=== PATIENT | female | born 1960 | race Caucasian/White ===

== ENCOUNTER 2016-09-10 15:10 | Inpatient (IN) | payer BC ==
[~2016-09-10] VITALS: Ht 165.1 cm; Wt 127.9 kg
[2016-09-17] MEDS ORDERED: ALLO100T PO (09:46)
[2016-09-17] MEDS ORDERED: DICY10CA12 PO (09:46)
[2016-09-17] MEDS ORDERED: OMEP10CA PO (09:46)
[2016-09-17] MEDS ORDERED: METF500T PO (09:46)
[2016-09-17] MEDS ORDERED: MELA5TAB15 PO (09:46)
[2016-09-17] MEDS ORDERED: POTA99TA4 PO (09:47)
[2016-09-17] MEDS ORDERED: CETI10CA3 PO (09:47)
[2016-09-17] MEDS ORDERED: FLUT1SPR5 EACH NARE (09:47)
[2016-09-17] MEDS ORDERED: MAGN250T11 PO (09:47)
[2016-09-17] MEDS ORDERED: NAPR500T PO (10:43)
[2016-09-17] MEDS ORDERED: FLUO10TA PO (10:43)
[2016-09-17] MEDS ORDERED: AMBI5TAB PO (10:43)
[2016-09-28] MEDS ORDERED: CHLORHEXIDINE GLUCONATE 2 % 1 PACK (2 CLOTHS) TOPICAL PRN (05:30)
[2016-09-28] MEDS ORDERED: ceFAZolin 2 GM PREMIX 50 ML IV SCH (05:30)
[2016-09-28] MEDS ORDERED: CHLORHEXIDINE GLUCONATE 4% SOLN 120 ML BTL TOPICAL SCH (05:30)
[2016-09-28] MEDS ORDERED: POVIDONE IODINE 5% (ANTISEPSIS KIT) 4 APPLICATIONS EACH NARE PRN (05:30)
[2016-09-28] MEDS ORDERED: SODIUM CHLORID 0.9% 500 ML IV PRN (05:30)
[2016-09-28] MEDS ORDERED: METOPROLOL TARTRATE 25 MG TAB PO PRN (05:30)
[2016-09-28] MEDS ORDERED: LACTATED RINGER'S 1000 ML IV PRN (05:30)
[2016-09-28] MEDS ORDERED: INSULIN HUMAN REGULAR 1,000 UNITS/10 ML VIAL SQ PRN (05:30)
[2016-09-28] MEDS ORDERED: MELA1TAB18 PO (05:40)
[2016-09-28] MEDS ORDERED: MAGN400T2 PO (05:40)
[2016-09-28] MEDS ORDERED: IBUP200T2 PO (05:42)
[2016-09-28] MEDS ORDERED: OMEP40CA2 PO (05:43)
[2016-09-28 05:44] VITALS: BP 158/97; PULSE 75; RESP 16; TEMP 98.5; O2SAT 98
[2016-09-28] MEDS ORDERED: GENTAMICIN SULFATE 80 MG/2 ML VIAL ONE (06:10)
[2016-09-28] MEDS ORDERED: ACETAMINOPHEN/HYDROcodone 325 MG/7.5 MG TAB PO PRN (07:00)
[2016-09-28] MEDS ORDERED: ONDANSETRON HCL 4 MG/2 ML VIAL IVP PRN (07:00)
[2016-09-28] MEDS ORDERED: MAGNESIUM HYDROXIDE SUSP 30 ML CUP PO PRN (07:00)
[2016-09-28] MEDS ORDERED: SODIUM CHLORIDE 0.9% IV SCH ×2 (07:00→10:00)
[2016-09-28] MEDS ORDERED: MELATONIN 5 MG TAB PO PRN (07:00)
[2016-09-28] MEDS ORDERED: DICYCLOMINE HCL 10 MG CAP PO PRN (07:00)
[2016-09-28] MEDS ORDERED: TRANEXAMIC ACID INJ 0 MG in SODIUM CHLORIDE 0.9% INJ 100 ML IV SCH (07:00)
[2016-09-28] MEDS ORDERED: SODIUM CHLORIDE 0.9% FLUSH 5 ML FLUSH IVF PRN (07:00)
[2016-09-28] MEDS ORDERED: EXPAREL PERI-ARTICULAR INJECTION (TOTAL VOL. 100 ML) P-ARTICULR SCH ×2 (07:00)
[2016-09-28] MEDS ORDERED: TRANEXAMIC ACID IV SCH ×2 (07:00→10:00)
[2016-09-28] MEDS: KETOROLAC TROMETHAMINE 30 MG/ML (IVP) VIAL IVP SCH ×3 (07:00→18:07)
[2016-09-28] MEDS ORDERED: ZOLPIDEM TARTRATE 5 MG TAB PO PRN (07:00)
[2016-09-28] MEDS ORDERED: MORPHINE SULFATE 4 MG/ML INJ IV PUSH PRN (07:00)
[2016-09-28] MEDS ORDERED: BUPIVACAINE LIPOSOME PF 1.3% 20 ML VIAL ONE (07:34)
[2016-09-28] MEDS: FLUoxetine HCL 10 MG CAP PO SCH (09:00)
[2016-09-28] MEDS ORDERED: NON-FORMULARY DRUG (Potassium 1 TAB) PO SCH (09:00)
[2016-09-28] MEDS: PANTOPRAZOLE SOD 40 MG DELAYED RELEASE TAB PO SCH ×2 (09:00→20:32)
[2016-09-28] MEDS: ASPIRIN EC 81 MG TABEC PO SCH ×2 (09:00→20:32)
[2016-09-28] MEDS: MAGNESIUM OXIDE 400 MG TAB PO SCH (09:00)
[2016-09-28] MEDS: CETIRIZINE HCL 10 MG TAB PO SCH (09:00)
[2016-09-28] MEDS: ALLOPURINOL 100 MG TAB PO SCH (09:00)
[2016-09-28] MEDS: SODIUM CHLORIDE 0.9% FLUSH 5 ML FLUSH IVF SCH ×2 (09:00→20:32)
[2016-09-28] MEDS ORDERED: Post-op Orders (for Pharmacy) MISC XX ONE (09:30)
[2016-09-28] MEDS ORDERED: MIDAZOLAM HCL 2 MG/2 ML VIAL ONE (09:31)
[2016-09-28] MEDS: LACTATED RINGER'S 1000 ML INJ 1,000 ML IV SCH ×2 (09:40→19:24)
[2016-09-28] MEDS ORDERED: *morphine SULFATE 8 MG/ML PERIprocedure ONLY ONE ×3 (09:50→10:48)
--- NOTE | 2016-09-28 10:03 | RADRPT ---
EXAM DATE/TIME: 09/28/2016 09:15 [facility] COMPARISON: No previous studies available for comparison. INDICATIONS : Post-op total right knee arthroplasty. MEDICAL HISTORY : Diabetes mellitus type II. SURGICAL HISTORY : Hysterectomy. Tonsillectomy. Removal of stomach tumor; removal of liver cyst. ENCOUNTER: Initial ACUITY: 1 day PAIN SCORE: 6/10 LOCATION: Right knee. FINDINGS: 2 view examination the demonstrates total knee arthroplasty with anatomic alignment of the osseous st ructures. Soft tissue swelling about the anterior knee and [address]. CONCLUSION: Postop total knee arthroplasty with good alignment of the osseous structures. Vinicio Arredondo MD on September 28, 2016 at 10:01 Board Certified Radiologist. This report was verified electronically.
[2016-09-28 11:30] VITALS: BP 129/70; PULSE 93; RESP 17; TEMP 96.2; O2SAT 97
[2016-09-28] MEDS ORDERED: PHENYLEPH/NS 1000 MCG/10 ML SYR IV ONE (12:00)
[2016-09-28] MEDS ORDERED: PROPOFOL 200 MG/20 ML AMP IV ONE (12:00)
[2016-09-28] MEDS: ACETAMINOPHEN/HYDROcodone 325 MG/7.5 MG TAB PO PRN ×3 (12:16→22:21)
--- NOTE | 2016-09-28 12:19 | HHI.FF ---
Face to Face Verification Diagnosis: (1) Status post total right knee replacement Physical Therapy Knee: Total knee, Protocol: Right, Gait training, Full weight bearing Right LE Weight Bearing: WB as tolerated Right LE Range of Motion: Active ROM (AROM, AAROM, PROM, PRE. ROM goal is o to 130 degrees. ROM in the OR was 0 to 135 degrees.) Nursing Nursing: Dressing changes Dressing Changes: Daily dressing change, Coverderm/Primapore Additional Instructions Remove steristrips on postop day 14. I have seen patient Nancy Calvert on 09/28/16. My clinical findings support the need for the requested home health care services because: Ltd mobility - disease progression Limited ability to care for self High risk of falls I certify that my clinical findings support that this patient is homebound because: Post-op weakness Unsteady gait/balance Unsafe to leave home unassisted Cris Nelson MD (Charles) Sep 28, 2016 12:19
--- NOTE | 2016-09-28 12:27 | PD.CONS ---
HPI Service [facility] Consult Requested By francisca Cooley Reason for Consult Medical management Primary Care Physician Daniel Forte MD Diagnoses: History of Present Illness Pleasant 55-year-old female with past medical history diabetes, osteoarthritis, morbid obesity BMI 46.9. She didn't convincingly surgery might arthroplasty. She is currently in chair, eating. She denies having any chest pain, shortness of breath, vomiting diarrhea or constipation. Pain is fairly controlled by medications. Says she has constipation. 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 Review of Systems Except as stated in HPI: all other systems reviewed are Neg Past Family Social History Allergies: Coded Allergies: HMG-CoA Reductase Inhibitors (Verified Allergy, Severe, MUSCLE ACHES, ) Past Medical History Diabetes GIST tumor, gastroparesis Seasonal allergies GERD Past Surgical History GIST tumor with the removal Hysterectomy Reported Medications Reported Meds & Active Scripts Active Reported Omeprazole 40 Mg Cap 40 Mg PO BID Ibuprofen 200 Mg Tab 800 Mg PO BID PRN Melatonin 10 Mg Tab 10 Mg PO HS PRN Magnesium Oxide 400 Mg Tab 400 Mg PO DAILY Fluoxetine (Fluoxetine HCl) 10 Mg Tab 10 Mg PO DAILY Zyrtec (Cetirizine HCl) 10 Mg Capsule 1 Cap PO DAILY Flonase Nasal Larimer (Fluticasone Nasal Larimer) 50 Mcg/Act [place] 50 Mcg EACH NARE BID Potassium 99 Mg Tablet 1 Tab PO DAILY Dicyclomine (Dicyclomine HCl) 10 Mg Cap 10 Mg PO TID PRN Allopurinol 100 Mg Tab 100 Mg PO DAILY Metformin (Metformin HCl) 500 Mg Tab 500 Mg PO AC DINNER With a meal Family History Father with diabetes Mother arthritis Social History Denies current or past alcohol use, illicit drug use or tobacco use. Physical Exam Vital Signs Vital Signs Date Time Temp Pulse Resp B/P Pulse Ox O2 Delivery O2 Flow Rate FiO2 09/28/16 11:00 97.1 76 14 116/57 98 Room Air 09/28/16 10:45 71 12 112/58 97 09/28/16 10:30 68 12 112/54 99 09/28/16 10:15 66 12 114/55 99 09/28/16 10:00 64 13 100/59 99 09/28/16 09:45 64 12 114/66 100 09/28/16 09:30 68 12 115/65 100 09/28/16 09:24 97.1 69 12 113/61 100 Room Air 09/28/16 05:44 98.5 75 16 158/97 98 Physical Exam GENERAL: This is a well-nourished, well-developed patient, in no apparent distress. SKIN: No rashes, ecchymoses or lesions. Cool and dry. HEAD: Atraumatic. Normocephalic. No temporal or scalp tenderness. EYES: Pupils equal round and reactive. Extraocular motions intact. No scleral icterus. No injection or drainage. ENT: Nose without bleeding, purulent drainage or septal hematoma. Throat without erythema, tonsillar hypertrophy or exudate. Uvula midline. Airway patent. NECK: Trachea midline. No JVD or lymphadenopathy. Supple, nontender, no meningeal signs. CARDIOVASCULAR: Regular rate and rhythm without murmurs, gallops, or rubs. RESPIRATORY: Clear to auscultation. Breath sounds equal bilaterally. No wheezes , rales, or rhonchi. GASTROINTESTINAL: Abdomen soft, non-tender, nondistended. No hepato-splenomegaly , or palpable masses. No guarding. MUSCULOSKELETAL: Extremities without clubbing, cyanosis, or edema. No joint tenderness, effusion, or edema noted. No calf tenderness. Negative Homans sign bilaterally. NEUROLOGICAL: Awake and alert. Cranial nerves II through XII intact. Motor and sensory grossly within normal limits. Five out of 5 muscle strength in all muscle groups. Normal speech. Laboratory Laboratory Tests Test 09/28/16 05:40 Blood Type A POSITIVE Antibody Screen NEGATIVE Blood Bank Comment Imaging Last Impressions Knee X-Ray 09/28/16 0654 Signed Impressions: Service Date/Time: Wednesday, September 28, 2016 09:15 - CONCLUSION: Postop total knee arthroplasty with good alignment of the osseous structures. Vinicio Arredondo MD Assessment and Plan Assessment and Plan 55 yo F with Osteoarthritis and lateral knees. Status post right knee arthroplasty. Management per orthopedic doctor Morbid obesity with a BMI of 46.9. Diet and exercise Diabetes mellitus2 since he is controlled. Continue metformin or medications. Monitor blood sugar. History of GIST tumor with removal, and subsequent GERD and gastroparesis: small meals. Continue pantoprazole. Constipation: laxatives/stool softeners. DVT ppx per surgeon Thank you for this consultation, will follow along. Discussed Condition With patient,. nurse, family at bedside Cosma,Yareli MD Sep 28, 2016 12:27
[2016-09-28] MEDS ORDERED: NAPHAZOLINE HCL 0.012% OPHT SOLN 15 ML BOTTLE EACH EYE PRN (12:30)
[2016-09-28 15:40] VITALS: BP 123/67; PULSE 77; RESP 17; TEMP 98.2; O2SAT 94
[2016-09-28] MEDS ORDERED: metFORMIN HCL 500 MG TAB PO SCH (16:00)
[2016-09-28] MEDS ORDERED: DO NOT ADM ANY ANTICOAGULANT DRUGS PRN (19:30)
[2016-09-28 20:05] VITALS: BP 117/62; PULSE 80; RESP 17; TEMP 98.9; O2SAT 96
--- NOTE | 2016-09-28 20:59 | MP ---
cc: Aba DENNY. DATE OF SURGERY 09/28/16 PREOPERATIVE DIAGNOSIS Primary osteoarthritis, right knee. POSTOPERATIVE DIAGNOSIS Primary osteoarthritis, right knee. OPERATION PERFORMED Right total knee arthroplasty with John Triathlon prosthesis (uncemented). SURGEON Pascale Denny MD [facility] [place] ANESTHESIA Spinal and saphenous block by Jose Montano MD and supplemental local with Exparel. INDICATIONS AND FINDINGS This 55-year-old woman has right knee pain in excess of 1 year with progressive worsening of pain on weightbearing. Ambulation tolerance is one block. She has pain and difficulty standing from a seated position and ascending and descending stairs. She has stiffness when sitting. Treatment has included nonsteroidal anti-inflammatory agents, analgesics, activity modification, exercises and the use of ambulatory aids without any benefit. Physical findings showed significant medial laxity with tenderness especially in the medial compartment, crepitation on range of motion. X-rays showed significant arthritis in the right knee with loss of articular cartilage medially and laterally but predominantly medial with osteophytes that were tricompartmental and medial eburnation. Operative findings showed significant tricompartmental arthritis especially in the medial and patellofemoral compartments. There is loss of articular cartilage to expose subchondral bone, especially medially. Osteophytes were noted as well. The prosthesis used was a [employer] Triathlon prosthesis with the femur being a size 5 cruciate-retaining Press-Fit, the tibia being a tritanium baseplate size 5, the spacer being a 9 mm cruciate-retaining x-ray polyethylene spacer and the patella being an asymmetric 32-mm tritanium backed patella. PROCEDURE The patient was brought to the clean-air operating suite and a spinal anesthetic was administered. She received prophylactic antibiotics in the form of Ancef 2 grams according to protocol and also received tranexamic acid according to protocol. She also received an adductor canal block after the spinal. A pneumatic tourniquet was placed about the right thigh. The right knee was then prepped with alcohol, Hibiclens and Chloraprep and draped in the usual manner with the knee draped free. An appropriate time-out procedure was carried out. Local anesthesia was administered in the incision site prior to making the incision. Incision was then made from three fingerbreadths above the superior medial pole of patella down to the tibial tubercle on the medial side. The incision was deepened through subcutaneous tissues to the retinacular structures which were exposed medially and laterally. A medial retinacular incision was made from the superior medial pole of patella down to the tibial tubercle and up into the quadriceps tendon splitting it longitudinally in the medial one-third. The patella was reflected. Medial and lateral dissection was carried out. The infrapatellar fat pad was debulked. Posterior surface of the patella was excised. Patella protector was applied. The fenestrations were made in the distal femur and the proximal tibia. Medial and lateral meniscectomies were initiated. The distal femoral cutting guide and jig was assembled for 5 degrees 8-mm cut. This cut was then completed with the oscillating saw. The sizing guide was positioned after removal of the cutting guide. This was stabilized with pins. The size was determined to be either a 5 or a 6. The 4 in 1 cutting block for the six was placed into position. Anterior and posterior cuts were made followed by posterior and anterior chamfer cuts. The size [address] and it was determined that this would be better, therefore, the cuts were redone. Osteophytes were trimmed. Attention was directed to the tibia. Medial and lateral meniscectomies were completed. The intramedullary proximal tibial cutting guide and jig was then assembled and positioned appropriately. The depth of cut was verified with a stylus after rotation was assured with pinning of the guide. The jig was removed. The proximal tibial cut was verified with the spacer block. The proximal tibial cut was completed with the oscillating saw taking care to prevent injury to neurovascular and ligamentous structures. The sizing guide again verified that this was an appropriate position. The bone plugs were placed in the distal femur and proximal tibia. Local anesthesia was administered with Exparel around the entire capsule. The tibial baseplate trial was positioned in place for a size 5 with a 9 mm spacer. The femoral component was impacted into place. This was also a size 5. The tibia was pinned in place the appropriate position. Patella drill holes were made. The 32-mm patella trial was applied to the posterior surface of the patella. The knee was taken through a range of motion which was easily 0 degrees extension to 135 degrees of flexion with excellent stability. The patella trial was removed. The femoral drill holes were made. The femoral trials removed. Tibial spacer was removed. The tibial punch was impacted through its guide and removed. The tibial drill guide was positioned in place and drill holes made. This was likewise removed. The cut ends of bone were cleaned with pulse lavage. The size 5 tibial baseplate was impacted into place and seated appropriately. A 9 mm spacer was inserted. The size 5 femoral component was impacted into place and seated appropriately. The patella size [address] and seated with the patella vice. Drains were brought out the superolateral aspect of the suprapatellar pouch. The remainder of the Exparel was injected. The wound closure then commenced using 0 Vicryl interrupted soamca-ws-reida sutures for closure of capsular and fascial structures, 2-0 Vicryl interrupted simple sutures with buried knots for the subcutaneous tissues and 4-0 Monocryl continuous subcuticular closure for the skin. The wound was dressed with Steri-Strips followed by dry dressing, sterile Sof-Rol, cooling pad further sterile Sof-Rol and Geoffrey bandage from the base of the toe to midthigh. The patient was transferred from the operating room to the recovery room in satisfactory condition having tolerated the procedure well. Counts were correct. Specimens none. Estimated blood loss 300 mL. MD ARTI Llamas/NESTOR /9:02 AM /8:48 PM
[2016-09-28] MEDS ORDERED: diphenhydrAMINE HCL 25 MG CAP PO ONE (22:30)
[2016-09-29 00:01] VITALS: BP 121/71; PULSE 83; RESP 17; TEMP 98.2; O2SAT 96
[2016-09-29] MEDS: KETOROLAC TROMETHAMINE 30 MG/ML (IVP) VIAL IVP SCH ×3 (00:16→13:19)
[2016-09-29] MEDS: ACETAMINOPHEN/HYDROcodone 325 MG/7.5 MG TAB PO PRN ×4 (03:08→15:26)
[2016-09-29 04:05] VITALS: BP 170/76; PULSE 89; RESP 18; TEMP 97.3; O2SAT 98
--- NOTE | 2016-09-29 06:30 | PD.ORT.PN ---
Subjective Post Op Day #: 1 Subjective Remarks She is doing better than yesterday. The vertigo has abated. She has been OOB to the [facility]. Range of Motion Not recorded. Distance Walked 15 feet, limited by vertigo. Objective Vitals Vital Signs Date Time Temp Pulse Resp B/P Pulse Ox O2 Delivery O2 Flow Rate FiO2 09/29/16 04:05 97.3 89 18 170/76 98 09/29/16 00:01 98.2 83 17 121/71 96 09/28/16 20:05 98.9 80 17 117/62 96 09/28/16 15:40 98.2 77 17 123/67 94 09/28/16 15:37 21 09/28/16 11:30 96.2 93 17 129/70 97 09/28/16 11:00 97.1 76 14 116/57 98 Room Air 09/28/16 10:45 71 12 112/58 97 09/28/16 10:30 68 12 112/54 99 09/28/16 10:15 66 12 114/55 99 09/28/16 10:00 64 13 100/59 99 09/28/16 09:45 64 12 114/66 100 09/28/16 09:30 68 12 115/65 100 09/28/16 09:24 97.1 69 12 113/61 100 Room Air I/O 09/28/16 09/28/16 09/28/16 09/29/16 09/29/16 09/29/16 07:00 15:00 23:00 07:00 15:00 23:00 Intake Total 1620 ml 580 ml Output Total 140 ml 30 ml Balance 1620 ml 440 ml -30 ml Intake Oral 720 ml 240 ml IV Total 340 ml Other 900 ml Output Drainage Total 140 ml 30 ml # Voids 1 1 1 # Bowel Movements 0 0 Imaging Last 24 hours Impressions Knee X-Ray 09/28/16 0654 Signed Impressions: Service Date/Time: Wednesday, September 28, 2016 09:15 - CONCLUSION: Postop total knee arthroplasty with good alignment of the osseous structures. Vinicio Arredondo MD Objective Remarks She is resting comfortably, supine in bed in the [facility]. The original dressing is dry and intact. The neurovascular status is intact. Assessment & Plan Ortho Post Op Day #: 1 Problem List: (1) Status post total right knee replacement Plan: Continue postop care and PT. Assessment and Plan Condition: Good. Orthopaedically stable. DVT prophylaxis: ASA, TEDs, sequentials. Discharge plans: Home with C. Has appointment. Rx: [place] 7.5/325. Cris Nelson MD (Charles) Sep 29, 2016 06:30
[2016-09-29] MEDS ORDERED: HYDR-3580 PO (06:32)
[2016-09-29] MEDS ORDERED: ASPI-99 PO (06:32)
[2016-09-29 07:11] LABS: HEMATOCRIT 31.7 % (35.0-46.0); REVIEW FLAG FINAL
[2016-09-29 07:38] VITALS: BP 126/66; PULSE 89; RESP 18; TEMP 98.8; O2SAT 95
[2016-09-29] MEDS: LACTATED RINGER'S 1000 ML INJ 1,000 ML IV SCH (07:54)
[2016-09-29] MEDS: FLUoxetine HCL 10 MG CAP PO SCH (08:34)
[2016-09-29] MEDS: ALLOPURINOL 100 MG TAB PO SCH (08:34)
[2016-09-29] MEDS: CETIRIZINE HCL 10 MG TAB PO SCH (08:34)
[2016-09-29] MEDS: ASPIRIN EC 81 MG TABEC PO SCH (08:34)
[2016-09-29] MEDS: MAGNESIUM OXIDE 400 MG TAB PO SCH (08:34)
[2016-09-29] MEDS: PANTOPRAZOLE SOD 40 MG DELAYED RELEASE TAB PO SCH (08:34)
[2016-09-29] MEDS: SODIUM CHLORIDE 0.9% FLUSH 5 ML FLUSH IVF SCH (08:38)
[2016-09-29 09:30] VITALS: O2SAT 96
[2016-09-29 11:54] VITALS: BP 129/73; PULSE 82; RESP 18; TEMP 98.3; O2SAT 95
--- NOTE | 2016-09-29 14:22 | HHI.PR ---
Subjective Remarks In the chair. Says she is able to eat, no n/v/d/c. Pain is controlled by meds. Says she had some gritty eye sensation in her right eye yesterday, better today with eye drops. No fever or chills. Objective Vitals Vital Signs Date Time Temp Pulse Resp B/P Pulse Ox O2 Delivery O2 Flow Rate FiO2 09/29/16 09:30 96 21 09/29/16 07:38 98.8 89 18 126/66 95 09/29/16 04:05 97.3 89 18 170/76 98 09/29/16 00:01 98.2 83 17 121/71 96 09/28/16 20:05 98.9 80 17 117/62 96 09/28/16 15:40 98.2 77 17 123/67 94 09/28/16 15:37 21 I/O 09/28/16 09/28/16 09/28/16 09/29/16 09/29/16 09/29/16 07:00 15:00 23:00 07:00 15:00 23:00 Intake Total 1620 ml 580 ml 240 ml Output Total 140 ml 30 ml Balance 1620 ml 440 ml 210 ml Intake Oral 720 ml 240 ml 240 ml IV Total 340 ml Other 900 ml Output Drainage Total 140 ml 30 ml # Voids 1 1 1 2 # Bowel Movements 0 0 0 Result Diagram: 09/29/16 0644 Imaging GENERAL: This is a well-nourished, well-developed patient, in no apparent distress. EYES: Pupils equal round and reactive. Extraocular motions intact. No scleral icterus. No injection or drainage. CARDIOVASCULAR: Regular rate and rhythm without murmurs, gallops, or rubs. RESPIRATORY: Clear to auscultation. Breath sounds equal bilaterally. No wheezes , rales, or rhonchi. GASTROINTESTINAL: Abdomen soft, non-tender, nondistended. No hepato-splenomegaly , or palpable masses. No guarding. MUSCULOSKELETAL: Extremities without clubbing, cyanosis, or edema. No joint tenderness, effusion, or edema noted. No calf tenderness. Negative Homans sign bilaterally. NEUROLOGICAL: Awake and alert. Cranial nerves II through XII intact. Motor and sensory grossly within normal limits. Five out of 5 muscle strength in all muscle groups. Normal speech. A/P Assessment and Plan 55 yo F with Osteoarthritis and lateral knees. Status post right knee arthroplasty. Management per orthopedic doctor. H/H stable Morbid obesity with a BMI of 46.9. Diet and exercise Diabetes mellitus2 since he is controlled. Continue metformin or medications. Monitor blood sugar. History of GIST tumor with removal, and subsequent GERD and gastroparesis: small meals. Continue pantoprazole. Constipation: laxatives/stool softeners. DVT ppx per surgeon Thank you for this consultation, will follow along. Discussed Condition With patient, nurse, family at bedside Yareli Jeronimo MD Sep 29, 2016 14:22
[2016-09-29] MEDS ORDERED: diphenhydrAMINE HCL 25 MG CAP PO PRN (14:30)
[2016-09-29] MEDS ORDERED: DOCUSATE SODIUM 100 MG CAP PO SCH (21:00)
--- NOTE | 2016-10-07 14:29 | MH ---
cc: [facility]List DATE OF ADMISSION: 09/28/2016 ADMITTING DIAGNOSIS: This. Nelson dictating an operative report with correction a starter cheko cheko calderon Nelson dictating a preoperative history and physical examination on the last name GOT TSH ALL first name Nancy Hanna had and the medical record number is [id number] visit number is [id number] gait is [id number]. ADMISSION DIAGNOSIS The anus accidental fall with contusion and laceration with dehiscence right total knee arthroplasty in the head shows sinus PRESENT ILLNESS His 57-year-old woman was treated by the correction 55-year-old woman was treated by the undersigned with a total knee arthroplasty carried out on September 27, 2016. She had an uneventful recovery in the hospital and was subsequently discharged home with home health care. She was walking with a walker until yesterday and began walking with a cane today. She went in to the bathroom to take a shower. When she came out of the shower she slipped accidentally on the wet floor and struck her knee disrupting the wound. Her was with rest times. There was no loss of consciousness. She was brought to [facility] where she was found to have disruption of her wound as admitted for care of the same past else she had the total hip are through depression total knee arthroplasty as detailed above. She had a hysterectomy in 2001 cyst removed for stomach at 2006, cyst removed from the liver and 2006 cholecystectomy in 2006. The cyst removed from a 92,015. Medical history includes childbirth in 1976, 1980 and 1982. She had a calcaneal fracture on the right into 1007. Medical conditions include osteoarthritis, diabetes mellitus type 2, gastroparesis his. Her primary care physician is bib tesfaye MD. A paper plate machine tender was GALILEA Melendrez ENT. MEDICATIONS Medications include 1. Fluoxetine 16 at L you wakes DVT. I am the 20 mg. 2. Fluticasone, FL you T Geoffrey left ear and he 60 mcg. 3. Metformin 500 mg. 4. Omeprazole 40 mg. She has been taking. 5. Aspirin 81 mg twice daily as an anticoagulant. ALLERGIES Start this causes headaches. Statins cause muscle pain. FAMILY HISTORY Parent father is at age 90 of renal failure and diabetes. Mother is living with arthritis. She has two living siblings. He grandmother IMPRESSION Maternal grandmother had diabetes. NOTE Asthma. SOCIAL HISTORY She is . She is a senior Human special services specialist. She does not smoke and has never smoked. She drinks one dose of alcohol week. Recreational activities include walking. Review systems are remarkable on the above examinations the patient is an obese woman appearing disease out her stated age. Her most recent height was 65 inches with weight 280 pounds and a BMI of 46.6. Head: Normocephalic issues holes were equal and the cord reactive to light and accommodation. Sclerae are nonicteric. Fascia were pink. Extraocular motions are full. Nose and throat mucous membranes are moist and intact. Tongue is midline. Dentition is in good status is test is less motion is supple. There is no adenopathy. There is in her trachea is midline. Chest: Respiratory excursions are symmetrical. Breath sounds are normal. Heart: Rhythm is regular. There is no audible murmur. Abdomen: There is also loss is organomegaly or mass. Bowel sounds are normal. There is no rebound, rigidity or tenderness. The contour is rotund. She has well-healed surgical incisional scar. Extremities: The patient as his a incision and the anterior aspect of the knee with dressing being partially in place but with disruption going down to what appears to be at least a capsule and possibly intra-articularly. His this is consistent with a total knee arthroplasty. Her neurovascular status in the lower extremities is normal. Neurologic: The patient is alert and oriented. Cranial a 05/27/2011. Sensory and motor examination are grossly intact to his in x-ray shows a total knee arthroplasty in place with no evidence of bony or prosthetic disruption. ASSESSMENT Shallow. His right total knee arthroplasty, 09/27/2016 and correction 09/28/2016. Accidental fall. Contusion right knee with disruption and dehiscence of wound. PLAN I have seen the patient in emergency department in room. V4-V4 nine. I have evaluated her wound and examined her. The wound of the knee will have to be cleaned with irrigation and debridement. Prophylactic antibiotic correction antibiotics will be initiated. She will remain on antibiotics at least for a few days. She will remain hospitalized for at least a few days. She is aware that there is an increased risk of infection with this unfortunate disruption due to her accidental fall. An direct contusion. The procedure will be necessary in spite of the fact that she as that is an emergency. Her last fall in Her last oral intake was by coughing and toast with seven daughter and :30 today. At cm in dictation. Omar dictating copies C Luciano Nelson MD An every week C.MD ARTI Caputo/filomena /2:05 PM /2:17 PM
== END 2016-09-29 15:59 | disposition home health service (06) | DRG 470 ==
LOC: HSDI 09-28 05:04 → N06B 09-28 11:14
PROVIDERS: ADMIT Orthopaedic Surgery; ATTEND Orthopaedic Surgery
PROC: 3E0T3BZ Introduction of Anesthetic Agent into Peripheral Nerves and Plexi, Percutaneous Approach (ICD-10-PCS; 2016-09-28)
PROC: 0SRC0JA Replacement of Right Knee Joint with Synthetic Substitute, Uncemented, Open Approach (ICD-10-PCS; principal; 2016-09-28 06:43)
DX: M17.11 Unilateral primary osteoarthritis, right knee (principal); Z68.42 Body mass index [BMI] 45.0-49.9, adult; E66.01 Morbid (severe) obesity due to excess calories; E11.9 Type 2 diabetes mellitus without complications; Z79.84 Long term (current) use of oral hypoglycemic drugs; K31.84 Gastroparesis; K59.00 Constipation, unspecified; K21.9 Gastro-esophageal reflux disease without esophagitis; R42 Dizziness and giddiness
CPT/HCPCS: 73560; 85014; 85018; 86850; 86900; 86901; 94150; C1776; C9290; J0690; J1580; J1885; J2250; J2270; J2370; J7120

== ENCOUNTER → 2016-09-17 | Outpatient (CLI) | payer BC ==
[~2016-09-17] MED LIST: ALLO100T PO; AMBI5TAB PO; ASPI-99 PO; CELE200C PO; CEPH-460 PO; CETI10CA3 PO; DICY10CA12 PO; FLUO-1 PO; FLUO10TA PO; FLUO20CA12 PO; FLUT1SPR5 EACH NARE; HYDR-3580 PO; IBUP200T2 PO; MAGN250T11 PO; MAGN400T2 PO; MELA1TAB18 PO; MELA5TAB15 PO; METF500T PO; NAPR-576 PO; NAPR500T PO; OMEP10CA PO; OMEP40CA2 PO; POTA99TA4 PO; PRIL10CA PO; STOO100T PO; TYLE325T PO; ZOLP1TAB32 PO; [UNRECOGNIZED DRUG - OTHER] PO
== END ==
LOC: CPRE 09:27
PROVIDERS: ATTEND Orthopaedic Surgery
DX: Z01.818 Encounter for other preprocedural examination (principal); M17.11 Unilateral primary osteoarthritis, right knee; M79.609 Pain in unspecified limb

== ENCOUNTER 2016-10-07 11:17 | Inpatient (IN) | payer BC ==
[~2016-10-07] VITALS: Ht 167.6 cm; Wt 136.1 kg
[~2016-10-07 11:17] MED LIST changes: -AMBI5TAB PO; -CELE200C PO; -CEPH-460 PO; -FLUO-1 PO; -FLUO20CA12 PO; -MAGN250T11 PO; -MELA5TAB15 PO; -NAPR-576 PO; -NAPR500T PO; -OMEP10CA PO; -PRIL10CA PO; -STOO100T PO; -TYLE325T PO; -ZOLP1TAB32 PO; -[UNRECOGNIZED DRUG - OTHER] PO
[2016-10-07 11:26] VITALS: BP 158/84; PULSE 82; RESP 18; TEMP 97.8; TEMP 98.2; O2SAT 100
[2016-10-07 12:00] VITALS: BP 178/81; PULSE 91; RESP 18; O2SAT 100
[2016-10-07] MEDS ORDERED: VANCOMYCIN INJ 1,000 MG in SODIUM CHLOR 0.9% 250 ML INJ 250 ML IV ONE (12:00)
[2016-10-07] MEDS ORDERED: LACTATED RINGER'S 1000 ML INJ 1,000 ML IV ONE (12:00)
[2016-10-07] MEDS ORDERED: PROPOFOL 200 MG/20 ML AMP IV ONE (12:00)
[2016-10-07] MEDS ORDERED: SODIUM CHLOR 0.9% 1000 ML INJ 1,000 ML IV ONE (12:00)
[2016-10-07] MEDS ORDERED: MORPHINE SULFATE 4 MG/ML INJ IV PUSH ONE (12:00)
[2016-10-07] MEDS ORDERED: ONDANSETRON HCL 4 MG/2 ML VIAL IV PUSH ONE ×2 (12:00)
[2016-10-07] MEDS ORDERED: FLUO20CA12 PO (12:17)
[2016-10-07] MEDS ORDERED: TYLE325T PO (12:17)
[2016-10-07] MEDS ORDERED: CELE200C PO (12:17)
[2016-10-07] MEDS ORDERED: STOO100T PO (12:18)
[2016-10-07 12:39] LABS: HEMATOCRIT 34.5 % (35.0-46.0); MEAN CELL VOLUME 84.8 FL (80.0-100.0); MEAN CORPUSCULAR HEMOGLOBIN 27.5 PG (27.0-34.0); MEAN CORPUSCULAR HGB CONC 32.4 % (32.0-36.0); PLATELET COUNT 375 TH/MM3 (150-450); RED BLOOD COUNT 4.06 MIL/MM3 (4.00-5.30); RED CELL DISTRIBUTION WIDTH 14.3 % (11.6-17.2); REVIEW FLAG FINAL; WHITE BLOOD COUNT 10.6 TH/MM3 (4.0-11.0)
[2016-10-07 12:58] LABS: ALT (GPT) 41 U/L (10-53); ANION GAP 12 MEQ/L (5-15); AST (GOT) 26 U/L (15-37); BICARBONATE 25.4 MEQ/L (21.0-32.0); BLOOD UREA NITROGEN 19 MG/DL (7-18); CHLORIDE 102 MEQ/L (98-107); GLOMERULAR FILTRATION RATE 70 ML/MIN (>89); POTASSIUM 4.2 MEQ/L (3.5-5.1); SODIUM (NA) 139 MEQ/L (136-145)
[2016-10-07 13:00] VITALS: BP 161/77; PULSE 90; RESP 18; O2SAT 100
[2016-10-07 13:00] LABS: ALKALINE PHOSPHATASE 89 U/L (45-117); TOTAL BILIRUBIN ADULT 0.2 MG/DL (0.2-1.0)
--- NOTE | 2016-10-07 13:05 | RADRPT ---
EXAM DATE/TIME: 10/07/2016 12:38 [facility] COMPARISON: KNEE RIGHT LTD (1 OR 2 VWS), September 28, 2016, 9:15. INDICATIONS : Right knee pain. Fell in shower this morning and split open incision site. Post surgery 1 week ago. MEDICAL HISTORY : None. SURGICAL HISTORY : Total knee replacement, right. ENCOUNTER: Initial ACUITY: 1 day PAIN SCORE: 10/10 LOCATION: Right knee FINDINGS: The patient's arthroplasty hardware appears intact. There is soft tissue defect overlying the patella consistent with history. CONCLUSION: 1. Orthopedic hardware is intact. There is a large soft tissue defect overlying the knee. Heber Bobo MD on October 07, 2016 at 13:01 Board Certified Radiologist. This report was verified electronically.
--- NOTE | 2016-10-07 13:28 | PD ---
HPI Chief Complaint: Fall Time Seen by Provider: 11:26 Travel History International Travel<30 days: No Contact w/Intl Traveler<30days: No Traveled to known affect area: No History of Present Illness HPI This is a 55-year-old female who is status post right knee replacement was switched from ambulation with a rolling walker to ambulation with a cane yesterday during physical therapy. Patient states she was getting out of the shower and slipped and fell. Patient states she did not fall directly on her knee however she hit the right leg and subsequently reopened her surgical scar. Patient has significant bleeding initially that was controlled partially with direct pressure. Patient notes feeling nauseated and lightheaded and dizzy. PFSH Past Medical History Anxiety: No Depression: Yes Cancer: No Cardiovascular Problems: No Diabetes: Yes Patient Takes Glucophage: No Diminished Hearing: No Endocrine: Yes Gastrointestinal Disorders: Yes (GASTROPARESIS) GERD: Yes Genitourinary: No Hepatitis: No Hiatal Hernia: Yes Immune Disorder: No Musculoskeletal: Yes (OA) Psychiatric: Yes (TAKES ANTIDEPRESSANT) Reproductive: No Respiratory: No Immunizations Current: No Thyroid Disease: No Tetanus Vaccination: < 5 Years Influenza Vaccination: Yes Menopausal: Yes Past Surgical History Abdominal Surgery: Yes (TUMOR REMOVED FROM STOMACH, CYST FROM LIVER) AICD: No Cardiac Surgery: No Ear Surgery: No (TONSILLECTOMY) Endocrine Surgery: No Eye Surgery: Yes (CYST REMOVED FORM TEAR DUCT LEFT EYE) Genitourinary Surgery: No Gynecologic Surgery: Yes (HYSTERECTOMY) Hysterectomy: Yes Joint Replacement: Yes (R KNEE REPLACEMENT A WEEK AGO ) Oral Surgery: Yes Pacemaker: No Thoracic Surgery: No Tonsillectomy: Yes Other Surgery: Yes Social History Alcohol Use: Yes (SOCIALLY) Tobacco Use: No Substance Use: No Allergies-Medications (Allergen,Severity, Reaction): Coded Allergies: HMG-CoA Reductase Inhibitors (Verified Allergy, Severe, MUSCLE ACHES, ) Reported Meds & Prescriptions Reported Meds & Active Scripts Active Hydrocodone-Acetaminophen 7.5-325 mg Tab 1 Tab PO Q4H PRN Adult Aspirin EC Low Strength (Aspirin) 81 Mg Tabec 81 Mg PO BID Reported Stool Softener (Docusate Sodium) 100 Mg Tab 100 Mg PO DAILY PRN Celebrex (Celecoxib) 200 Mg Cap 200 Mg PO BID Tylenol (Acetaminophen) 325 Mg Tab 650 Mg PO Q4H PRN Fluoxetine (Fluoxetine HCl) 20 Mg Capsule 20 Mg PO DAILY Omeprazole 40 Mg Cap 40 Mg PO BID Melatonin 10 Mg Tab 10 Mg PO HS PRN Magnesium Oxide 400 Mg Tab 400 Mg PO DAILY Zyrtec (Cetirizine HCl) 10 Mg Capsule 10 Mg PO DAILY Flonase Nasal [place] (Fluticasone Nasal [place]) 50 Mcg/Act [place] 1 Spr EACH NARE BID Potassium 99 Mg Tablet 99 Mg PO DAILY Allopurinol 100 Mg Tab 100 Mg PO DAILY Metformin (Metformin HCl) 500 Mg Tab 500 Mg PO DAILY WITH DINNER With a meal Review of Systems ROS Limitations: Clinical Condition General / Constitutional: No: Fever, Chills, Weight Gain, Weight Loss, Other Eyes: No: Diploplia, Blurred Vision, Photophobia, Drainage, Redness, Foreign Body Sensation, Pain, Tearing, Blind Spots, Visual changes, Blindness, Other HENT: No: Headaches, Vertigo, Lightheadedness, Sore Throat, Rhinitis, Rhinorrhea, Congestion, Nosebleed, Neck Stiffness, Neck Pain, Masses, Gingival Bleeding, Dental Difficulties, Ear Discharge, Earache, Other Cardiovascular: No: Chest Pain or Discomfort, Palpitations, Irregular Rhythm, Tachycardia, Diaphoresis, Syncope, Dyspnea on exertion, Varicosities, Edema, Cyanosis, Varicosities, Phlebitis, Claudication, Other Respiratory: No: Cough, Shortness of Breath, Wheezing, Sneezing, Orthopnea, Hemoptysis, Stridor, Night Sweats, Pleuritic Pain, Other Gastrointestinal: Positive: Nausea, No: Vomiting, Diarrhea, Abdominal Pain, Hematemesis, Hematochezia, Constipation, Changes in Bowel Habits, Indigestion, Dysphagia, Loss of Appetite, Other Genitourinary: No: Urgency, Frequency, Dysuria, Nocturia, Hematuria, Decreased Urinary Output, Oliguria, Hesitancy, Dribbling, Incontinence, Pelvic Pain, Flank Pain, Dyspareunia, Discharge, Dysmenorrhea, Menorrhagia, Metorrhagia, Vaginal Bleeding, Other Musculoskeletal: No: Myalgias, Arthralgias, Limited ROM, Weakness, Cramping, Edema, Pain, Atrophy, Other Skin: Positive Other (BLEEDING FROM THE WOUND ), No Rash, No Itching, No Dryness, No Lumps, No Hives, No Change in Pigmentation, No Change in nails, No Alopecia, No Lesions, No Breast Lumps, No Breast Tenderness, No Breast Swelling Neurologic: Positive: Dizziness, Other (lightheaded and dizzy), No: Weakness, Syncope, Focal Abnormalities, Coordination Problem, Tremor, Ataxia, Headache, Change in Mentation, Slurred Speech, Paresthesia, Incontinence, Seizures, Sensory Disturbance Psychiatric: Positive: Anxiety, No: Depression, Suicidal Ideations, Disorder of Thought, Mood Disorder, Substance Abuse, Homicidal Ideation, Other Endocrine: No: Heat Intolerance, Cold Intolerance, Polyuria, Polydipsia, Other Hematologic/Lymphatic: No: Easy Bruising, Lymph Node Enlargement, Other Physical Exam Exam Limitations: Clinical Condition Narrative GENERAL: 55-year-old female in mild distress SKIN: Focused skin assessment warm/dry.no lesions no cyanosis no erythema HEAD: Atraumatic. Normocephalic. EYES: Pupils equal and round and reactive . No scleral icterus. No injection or drainage. ENT: No nasal bleeding or discharge. Mucous membranes pink and moist. NECK: Trachea midline. No JVD. CARDIOVASCULAR: S1-S2 appreciated. Regular rate and rhythm. No murmur appreciated. Pulses normal throughout. RESPIRATORY: No accessory muscle use. Clear to auscultation. Breath sounds equal bilaterally. GASTROINTESTINAL: Abdomen soft, non-tender, nondistended. Hepatic and splenic margins not palpable. Bowel sounds normal. No peritoneal signs. MUSCULOSKELETAL: Limited range of motion in the area of the right knee secondary to traumatic injury versus the skin subcutaneous tissue hardware exposed moderate bleeding from the side no purulent drainage noted NEUROLOGICAL: Awake and alert and oriented 3.. No obvious cranial nerve deficits. Motor and sensory exam grossly within normal limits. Normal speech. No meningeal signs. PSYCHIATRIC: Appropriate mood and affect; insight and judgment normal. No suicidal or homicidal ideation. Data Data Last Documented VS Vital Signs Date Time Temp Pulse Resp B/P Pulse Ox O2 Delivery O2 Flow Rate FiO2 10/07/16 14:25 76 10 175/94 100 10/07/16 13:00 Room Air 10/07/16 11:26 97.8 Orders Cbc No Diff, Includes Plts (10/07/16 11:52) Comprehensive Metabolic Panel (10/07/16 11:52) Sodium Chlor 0.9% 1000 Ml Inj (Ns 1000 M (10/07/16 12:00) Morphine Inj (Morphine Inj) (10/07/16 12:00) Ondansetron Inj (Zofran Inj) (10/07/16 12:00) Vancomycin Inj (Vancomycin Inj) (10/07/16 12:00) Knee, Complete (4vws) (10/07/16 ) Sodium Chlor 0.9% 1000 Ml Inj (Ns 1000 M (10/07/16 13:30) Admit To Inpatient (10/07/16 ) Vital Signs (Adult) Q4H (10/07/16 13:50) Activity Bed Rest (10/07/16 13:50) Ice / Cold Pack PRN (10/07/16 13:50) Diet Npo (10/07/16 Lunch) Sodium Chloride 0.9% Flush (Ns Flush) (10/07/16 14:00) Sodium Chloride 0.9% Flush (Ns Flush) (10/07/16 21:00) Diphenhydramine Inj (Benadryl Inj) (10/07/16 14:00) Diphenhydramine (Benadryl) (10/07/16 14:00) Naloxone Inj (Narcan Inj) (10/07/16 14:00) Cefazolin 2 Gm Premix (Ancef 2 Gm Premix (10/07/16 14:00) Consult Hospitalist (10/07/16 ) Inpatient Certification (10/07/16 ) Consent (10/07/16 13:50) Chlorhexidine 4% Top Soln (Hibiclens 4% (10/07/16 14:00) Tranexamic Acid Inj (Cyklokapron Inj) (10/07/16 17:00) (Hub Use Only)Inp Phy Cons/Ref (10/07/16 ) Admit Order (Ed Use Only) (10/07/16 14:28) Labs Laboratory Tests Test 10/07/16 12:05 White Blood Count 10.6 TH/MM3 Red Blood Count 4.06 MIL/MM3 Hemoglobin 11.2 GM/DL Hematocrit 34.5 % Mean Corpuscular Volume 84.8 FL Mean Corpuscular Hemoglobin 27.5 PG Mean Corpuscular Hemoglobin 32.4 % Concent Red Cell Distribution Width 14.3 % Platelet Count 375 TH/MM3 Mean Platelet Volume 8.7 FL Sodium Level 139 MEQ/L Potassium Level 4.2 MEQ/L Chloride Level 102 MEQ/L Carbon Dioxide Level 25.4 MEQ/L Anion Gap 12 MEQ/L Blood Urea Nitrogen 19 MG/DL Creatinine 0.84 MG/DL Estimat Glomerular Filtration 70 ML/MIN Rate Random Glucose 138 MG/DL Calcium Level 9.1 MG/DL Total Bilirubin 0.2 MG/DL Aspartate Amino Transf 26 U/L (AST/SGOT) Alanine Aminotransferase 41 U/L (ALT/SGPT) Alkaline Phosphatase 89 U/L Total Protein 7.3 GM/DL Albumin 3.2 GM/DL MDM Medical Decision Making Medical Screen Exam Complete: Yes Emergency Medical Condition: Yes Medical Record Reviewed: Yes Interpretation(s) X-ray of the right knee shows hardware to be intact large defects in the soft tissue Differential Diagnosis Differential diagnoses right knee disruption of surgical wound fall postoperative bleeding Narrative Course Pressure dressing applied with good hemostasis hemoglobin 11.2 blood glucose 1 1 :30 range patient given morphine for pain and Zofran for nausea normal saline given x-ray shows hardware intact as defect in the soft tissue case discussed with Dr. Saleem Nelson ORTHOPEDICS who has stated he will come to the emergency department to evaluate the patient Patient will likely be admitted and sent to the ER for correction of condition and hemodynamically stable alert and oriented 3 IV vancomycin given for infection prophylaxis Physician Communication Physician Communication Spoke with Dr. Saleem Nelson orthopedic at 1:15 PM states he was coming to the ER to evaluate the patient. Diagnosis Primary Impression: Fall Additional Impressions: WOUND CLOSURE DISRUPTION postoperative bleeding Admitting Information Admitting Physician Requests: Admit Condition: Stable Shonda Ramires MD Oct 07, 2016 13:28
[2016-10-07] MEDS ORDERED: SODIUM CHLOR 0.9% 1000 ML INJ 1,000 ML IV SCH (13:30)
[2016-10-07] MEDS ORDERED: SODIUM CHLORIDE 0.9% FLUSH 10 ML FLUSH IV FLUSH PRN (14:00)
[2016-10-07] MEDS ORDERED: NALOXONE HCL 0.4 MG/ML AMP IV PRN (14:00)
[2016-10-07] MEDS ORDERED: diphenhydrAMINE HCL 25 MG CAP PO PRN (14:00)
[2016-10-07] MEDS ORDERED: CHLORHEXIDINE GLUCONATE 4% SOLN 120 ML BTL TOPICAL SCH (14:00)
[2016-10-07] MEDS ORDERED: diphenhydrAMINE HCL 50 MG/ML VIAL IV PRN (14:00)
[2016-10-07] MEDS ORDERED: ceFAZolin 2 GM PREMIX 50 ML IV SCH (14:00)
--- NOTE | 2016-10-07 14:21 | HHI.HP ---
[facility] Service Orthopedic Surgeons Primary Care Physician Daniel Forte MD Admission Diagnosis Accidental fall (single level, slipped on wet floor). Contusion right knee. Dehiscence wound, right total knee. Diagnoses: Travel History International Travel<30 Days: No Contact w/Intl Traveler <30 Da: No Traveled to Known Affected Are: No History of Present Illness This 55 year old woman was exiting her shower today and slipped on the wet floor , apparently hitting her right knee where she had a total knee on 09/28/2016. She was bought to the hospital for treatment. Past Family Social History Past Medical History See previous H&P. Past Surgical History See previous H&P. Reported Medications See previous H&P. Allergies: Coded Allergies: HMG-CoA Reductase Inhibitors (Verified Allergy, Severe, MUSCLE ACHES, ) Active Ordered Medications Current Medications Medications (Trade) Dose Ordered Sig/Estefany Route Start Time Stop Time Status Last Admin (NS 1000 ml Inj) 1,000 ml @ 200 mls/hr Q5H IV 10/07/16 13:30 (NS Flush) 2 ml UNSCH PRN IV FLUSH 10/07/16 14:00 UNV (NS Flush) 2 ml BID IV FLUSH 10/07/16 21:00 UNV (Benadryl Inj) 25 mg Q4H PRN IV 10/07/16 14:00 UNV (Benadryl) 25 mg Q4H PRN PO 10/07/16 14:00 UNV (Narcan Inj) 0.4 mg UNSCH PRN IV 10/07/16 14:00 UNV Chlorhexidine Gluconate 1 applic 1 applic ONCE TOPICAL 10/07/16 14:00 10/11/16 13:59 UNV (Cyklokapron Inj/ NS Inj) 100 ml @ 200 mls/hr ONCE IV 10/07/16 17:00 10/08/16 16:59 UNV Reported Meds & Active Scripts Active Hydrocodone-Acetaminophen 7.5-325 mg Tab 1 Tab PO Q4H PRN Adult Aspirin EC Low Strength (Aspirin) 81 Mg Tabec 81 Mg PO BID Reported Stool Softener (Docusate Sodium) 100 Mg Tab 100 Mg PO DAILY PRN Celebrex (Celecoxib) 200 Mg Cap 200 Mg PO BID Tylenol (Acetaminophen) 325 Mg Tab 650 Mg PO Q4H PRN Fluoxetine (Fluoxetine HCl) 20 Mg Capsule 20 Mg PO DAILY Omeprazole 40 Mg Cap 40 Mg PO BID Melatonin 10 Mg Tab 10 Mg PO HS PRN Magnesium Oxide 400 Mg Tab 400 Mg PO DAILY Zyrtec (Cetirizine HCl) 10 Mg Capsule 10 Mg PO DAILY Flonase Nasal [place] (Fluticasone Nasal [place]) 50 Mcg/Act [place] 1 Spr EACH NARE BID Potassium 99 Mg Tablet 99 Mg PO DAILY Allopurinol 100 Mg Tab 100 Mg PO DAILY Metformin (Metformin HCl) 500 Mg Tab 500 Mg PO DAILY WITH DINNER With a meal Family History See previous H&P. Social History See previous H&P. Physical Exam Vital Signs Vital Signs Date Time Temp Pulse Resp B/P Pulse Ox O2 Delivery O2 Flow Rate FiO2 10/07/16 11:26 97.8 82 18 158/84 100 Physical Exam HEENT: normal Neck: supple with no adenopathy. Chest: Clear Heart: Regular rhythm with no murmur Abdomen: Soft with no organomegaly or mass. Extremities: Right knee wound is disrupted.Neurovasular status is intact. Neuro: Alert, oriented, CN 2-12 , sensory, motor intact, Laboratory Laboratory Tests Test 10/07/16 12:05 White Blood Count 10.6 Red Blood Count 4.06 Hemoglobin 11.2 Hematocrit 34.5 Mean Corpuscular Volume 84.8 Mean Corpuscular Hemoglobin 27.5 Mean Corpuscular Hemoglobin 32.4 Concent Red Cell Distribution Width 14.3 Platelet Count 375 Mean Platelet Volume 8.7 Sodium Level 139 Potassium Level 4.2 Chloride Level 102 Carbon Dioxide Level 25.4 Anion Gap 12 Blood Urea Nitrogen 19 Creatinine 0.84 Estimat Glomerular Filtration 70 Rate Random Glucose 138 Calcium Level 9.1 Total Bilirubin 0.2 Aspartate Amino Transf 26 (AST/SGOT) Alanine Aminotransferase 41 (ALT/SGPT) Alkaline Phosphatase 89 Total Protein 7.3 Albumin 3.2 Result Diagram: 10/07/16 1205 10/07/16 1205 Assessment & Plan Ortho Post Op Day #: 0 Problem List: (1) Status post total right knee replacement Assessment and Plan The wound is to be irrigated, debrided and repaired. She will be hospitalized on antibiotics for at least a few days. Potential complications and plans explained. Cris Nelson MD (Charles) Oct 07, 2016 14:21
[2016-10-07 14:25] VITALS: BP 175/94
[2016-10-07] MEDS ORDERED: BUPIVACAINE/EPINEPHRINE 0.5% PF 30 ML VIAL ONE (14:48)
[2016-10-07] MEDS ORDERED: MIDAZOLAM HCL 2 MG/2 ML VIAL ONE (14:52)
[2016-10-07] MEDS ORDERED: FAMOTIDINE 20 MG/2 ML VIAL ONE (14:52)
[2016-10-07] MEDS ORDERED: ACETAMINOPHEN 1000 MG/100 ML VIAL IV ONE (14:52)
[2016-10-07] MEDS ORDERED: HYDROmorphone HCL PF 2 MG/ML VIAL ONE (14:53)
[2016-10-07] MEDS ORDERED: ceFAZolin INJ 1,000 MG VIAL IV ONE (15:40)
[2016-10-07] MEDS ORDERED: VANCOMYCIN HCL 1000 MG VIAL ONE (15:43)
[2016-10-07] MEDS ORDERED: GENTAMICIN SULFATE 80 MG/2 ML VIAL IRRIGATION ONE ×2 (16:00→16:20)
[2016-10-07] MEDS ORDERED: GENTAMICIN SULFATE 80 MG/2 ML VIAL ONE (16:05)
[2016-10-07] MEDS ORDERED: TRANEXAMIC ACID INJ 1,000 MG in SODIUM CHLORIDE 0.9% INJ 100 ML IV SCH (17:00)
--- NOTE | 2016-10-07 17:38 | PD.CONS ---
HPI Service [facility] Consult Requested By Primary Care Physician Daniel Forte MD Diagnoses: History of Present Illness Mrs. Calvert is a 55 year old female. She is status post a right knee replacement on 09/28/12. She fell on her right knee and the wound dehisced. I am seeing her prior to surgery. She reports that she has gastroparesis and DM2. Versed has been provided and history is not clear. Depression appears present at baseline based on medications. Defect of the skin and soft tissue of the right knee is present, based on x-ray, with out disruption of hardware or fracture. Review of Systems Constitutional: DENIES: Fatigue, Fever, Chills Eyes: DENIES: Blurred vision, Diplopia Ears, nose, mouth, throat: DENIES: Hearing loss, Vertigo Respiratory: DENIES: Cough, Wheezing, Shortness of breath Cardiovascular: DENIES: Chest pain, Palpitations, Syncope Gastrointestinal: DENIES: Abdominal pain, Black stools, Bloody stools Musculoskeletal: COMPLAINS OF: Joint pain Integumentary: DENIES: Abnormal pigmentation Hematologic/lymphatic: DENIES: Bruising Immunologic/allergic: DENIES: Eczema Neurologic: DENIES: Abnormal gait Psychiatric: DENIES: Anxiety, Confusion Past Family Social History Allergies: Coded Allergies: HMG-CoA Reductase Inhibitors (Verified Allergy, Severe, MUSCLE ACHES, ) Past Medical History Diabetes HTN GIST tumor Hx Gastroparesis Seasonal allergies GERD Osteoarthritis Past Surgical History GIST tumor with the removal Hysterectomy Reported Medications Reported Meds & Active Scripts Active Hydrocodone-Acetaminophen 7.5-325 mg Tab 1 Tab PO Q4H PRN Adult Aspirin EC Low Strength (Aspirin) 81 Mg Tabec 81 Mg PO BID Reported Stool Softener (Docusate Sodium) 100 Mg Tab 100 Mg PO DAILY PRN Celebrex (Celecoxib) 200 Mg Cap 200 Mg PO BID Tylenol (Acetaminophen) 325 Mg Tab 650 Mg PO Q4H PRN Fluoxetine (Fluoxetine HCl) 20 Mg Capsule 20 Mg PO DAILY Omeprazole 40 Mg Cap 40 Mg PO BID Melatonin 10 Mg Tab 10 Mg PO HS PRN Magnesium Oxide 400 Mg Tab 400 Mg PO DAILY Zyrtec (Cetirizine HCl) 10 Mg Capsule 10 Mg PO DAILY Flonase Nasal [place] (Fluticasone Nasal [place]) 50 Mcg/Act [place] 1 Spr EACH NARE BID Potassium 99 Mg Tablet 99 Mg PO DAILY Allopurinol 100 Mg Tab 100 Mg PO DAILY Metformin (Metformin HCl) 500 Mg Tab 500 Mg PO DAILY WITH DINNER With a meal Family History Father: DM2 Mother: OA Social History No smoking, no drinking of alcohol, no drug abuse Physical Exam Vital Signs Vital Signs Date Time Temp Pulse Resp B/P Pulse Ox O2 Delivery O2 Flow Rate FiO2 10/07/16 14:25 76 10 175/94 100 10/07/16 13:00 90 18 161/77 100 Room Air 10/07/16 12:00 91 18 178/81 100 Room Air 10/07/16 11:26 100 Room Air 10/07/16 11:26 97.8 82 18 158/84 100 Physical Exam GENERAL: NAD, A&Ox3 SKIN: Warm and dry. HEAD: Normocephalic. EYES: No scleral icterus. No injection or drainage. NECK: Supple, trachea midline. No JVD or lymphadenopathy. CARDIOVASCULAR: Regular rate and rhythm without murmurs, gallops, or rubs. RESPIRATORY: Breath sounds equal bilaterally. No accessory muscle use. GASTROINTESTINAL: Abdomen soft, non-tender, nondistended. MUSCULOSKELETAL: No cyanosis, or edema. Right knee bandaged. BACK: Nontender without obvious deformity. No CVA tenderness. Laboratory Laboratory Tests Test 10/07/16 12:05 White Blood Count 10.6 Red Blood Count 4.06 Hemoglobin 11.2 Hematocrit 34.5 Mean Corpuscular Volume 84.8 Mean Corpuscular Hemoglobin 27.5 Mean Corpuscular Hemoglobin 32.4 Concent Red Cell Distribution Width 14.3 Platelet Count 375 Mean Platelet Volume 8.7 Sodium Level 139 Potassium Level 4.2 Chloride Level 102 Carbon Dioxide Level 25.4 Anion Gap 12 Blood Urea Nitrogen 19 Creatinine 0.84 Estimat Glomerular Filtration 70 Rate Random Glucose 138 Calcium Level 9.1 Total Bilirubin 0.2 Aspartate Amino Transf 26 (AST/SGOT) Alanine Aminotransferase 41 (ALT/SGPT) Alkaline Phosphatase 89 Total Protein 7.3 Albumin 3.2 Result Diagram: 10/07/16 1205 10/07/16 1205 Imaging Last Impressions Knee X-Ray 10/07/16 0000 Signed Impressions: Service Date/Time: September 12:38 - CONCLUSION: 1. Orthopedic hardware is intact. There is a large soft tissue defect overlying the knee. Heber Bobo MD Assessment and Plan Problem List: (1) Status post total right knee replacement ICD Code: Z96.651 Status: Acute (2) Primary osteoarthritis of right knee ICD Code: M17.11 Status: Acute (3) HTN (hypertension) ICD Code: I10 Status: Acute (4) Gastroparesis ICD Code: K31.84 Status: Acute (5) Wound dehiscence, traumatic injury repair ICD Code: T81.33XA Status: Acute (6) DM2 (diabetes mellitus, type 2) ICD Code: E11.9 Status: Acute Assessment and Plan Assessment and Plan 55 year old female status post surgical wound dehiscence at right knee Surgical wound dehiscence Related to fall OR repair in process PRN pain treatments PT after repair Diabetes Insulin Sliding Scale Diabetic Diet Follow blood sugars HTN Follow BP No change to baseline treatment GIST tumor hx gastroparesis Follow for symptoms No change to baseline managements Seasonal allergies GERD Follow clinically DVT Prophylaxis Lovenox will be considered post op Heber Hunt MD Oct 07, 2016 17:38
[2016-10-07] MEDS ORDERED: ONDANSETRON HCL 4 MG/2 ML VIAL IVP PRN (17:45)
[2016-10-07] MEDS ORDERED: SODIUM CHLORIDE 0.9% FLUSH 5 ML FLUSH IVF PRN (17:45)
[2016-10-07] MEDS ORDERED: Post-op Orders (for Pharmacy) MISC XX ONE (17:45)
[2016-10-07] MEDS ORDERED: DEXTROSE 50% IN WATER 50 ML VIAL(D50) IV PRN (17:45)
[2016-10-07] MEDS ORDERED: DOCUSATE SODIUM 100 MG PO PRN (17:45)
[2016-10-07] MEDS ORDERED: TRANEXAMIC ACID INJ 0 MG in SODIUM CHLORIDE 0.9% INJ 100 ML IV SCH (17:45)
[2016-10-07] MEDS ORDERED: GLUCAGON 1 MG/ML VIAL OTHER PRN (17:45)
[2016-10-07] MEDS ORDERED: ACETAMINOPHEN/HYDROcodone 325 MG/7.5 MG TAB PO PRN ×2 (17:45)
[2016-10-07] MEDS ORDERED: ENALAPRILAT 1.25 MG/ML VIAL IV PUSH PRN (17:45)
[2016-10-07] MEDS: KETOROLAC TROMETHAMINE 30 MG/ML (IVP) VIAL IVP SCH ×2 (18:00→23:47)
[2016-10-07] MEDS ORDERED: fentaNYL CITRATE 250 MCG/5 ML AMP ONE (18:12)
[2016-10-07] MEDS ORDERED: *morphine SULFATE 8 MG/ML PERIprocedure ONLY ONE (18:15)
[2016-10-07] MEDS: LACTATED RINGER'S 1000 ML INJ 1,000 ML IV SCH (18:30)
[2016-10-07] MEDS ORDERED: MELATONIN 5 MG TAB PO PRN (18:45)
[2016-10-07 19:00] VITALS: BP 150/81; PULSE 81; RESP 16; TEMP 96.7; O2SAT 98
[2016-10-07] MEDS ORDERED: DO NOT ADM ANY ANTICOAGULANT DRUGS PRN (19:00)
[2016-10-07] MEDS ORDERED: KETOROLAC TROMETHAMINE 30 MG/ML (IVP) VIAL IVP SCH (20:00)
[2016-10-07] MEDS: ACETAMINOPHEN/HYDROcodone 325 MG/7.5 MG TAB PO PRN (20:39)
[2016-10-07] MEDS: CELECOXIB 200 MG CAP PO SCH (20:39)
[2016-10-07] MEDS: ASPIRIN EC 81 MG TABEC PO SCH (20:41)
[2016-10-07] MEDS: SODIUM CHLORIDE 0.9% FLUSH 5 ML FLUSH IVF SCH (20:41)
[2016-10-07] MEDS: INSULIN ASPART SUPPLEMENTAL SCALE SQ SCH (20:41)
[2016-10-07] MEDS ORDERED: SODIUM CHLORIDE 0.9% FLUSH 10 ML FLUSH IV FLUSH SCH (21:00)
[2016-10-07] MEDS: MORPHINE SULFATE 4 MG/ML INJ IV PUSH PRN (23:48)
[2016-10-08] VITALS (7 sets, daily range): BP systolic 111–165; BP diastolic 61–88; PULSE 79–93; RESP 16–18; TEMP 96.9–98.7; O2SAT 97–100
[2016-10-08] MEDS: ZOLPIDEM TARTRATE 5 MG TAB PO PRN ×2 (00:43→22:05)
[2016-10-08] MEDS: ACETAMINOPHEN/HYDROcodone 325 MG/7.5 MG TAB PO PRN ×5 (04:53→22:04)
[2016-10-08] MEDS: INSULIN ASPART SUPPLEMENTAL SCALE SQ SCH ×4 (06:06→21:00)
[2016-10-08] MEDS: LACTATED RINGER'S 1000 ML INJ 1,000 ML IV SCH ×2 (06:10→17:11)
[2016-10-08] MEDS: KETOROLAC TROMETHAMINE 30 MG/ML (IVP) VIAL IVP SCH ×3 (06:11→16:43)
[2016-10-08] MEDS: PANTOPRAZOLE SOD 40 MG DELAYED RELEASE TAB PO SCH ×2 (06:11→16:41)
[2016-10-08 07:10] LABS: HEMATOCRIT 28.2 % (35.0-46.0); MEAN CELL VOLUME 85.9 FL (80.0-100.0); MEAN CORPUSCULAR HEMOGLOBIN 27.7 PG (27.0-34.0); MEAN CORPUSCULAR HGB CONC 32.2 % (32.0-36.0); PLATELET COUNT 337 TH/MM3 (150-450); RED BLOOD COUNT 3.28 MIL/MM3 (4.00-5.30); RED CELL DISTRIBUTION WIDTH 14.2 % (11.6-17.2); REVIEW FLAG FINAL
--- NOTE | 2016-10-08 07:13 | PD.ORT.PN ---
Subjective Post Op Day #: 1 Subjective Remarks There is some pain. Objective Vitals Vital Signs Date Time Temp Pulse Resp B/P Pulse Ox O2 Delivery O2 Flow Rate FiO2 10/08/16 04:00 96.9 93 17 132/76 99 10/08/16 04:00 96.9 93 16 132/69 99 10/08/16 00:00 97.9 87 17 144/64 98 10/07/16 19:00 96.7 81 16 150/81 98 10/07/16 19:00 97.9 81 14 158/73 96 Nasal Cannula 2 10/07/16 18:45 81 14 154/72 96 Nasal Cannula 2 10/07/16 18:30 79 14 158/74 99 Nasal Cannula 2 10/07/16 18:15 79 14 159/75 99 Nasal Cannula 2 10/07/16 18:00 79 14 166/76 99 Nasal Cannula 3 10/07/16 17:45 97.9 85 14 189/81 100 Nasal Cannula 4 10/07/16 14:25 76 10 175/94 100 10/07/16 13:00 90 18 161/77 100 Room Air 10/07/16 12:00 91 18 178/81 100 Room Air 10/07/16 11:26 100 Room Air 10/07/16 11:26 97.8 82 18 158/84 100 I/O 10/07/16 10/07/16 10/07/16 10/08/16 10/08/16 10/08/16 07:00 15:00 23:00 07:00 15:00 23:00 Intake Total 1480 ml 924 ml Output Total 850 ml 100 ml Balance -850 ml 1380 ml 924 ml Intake Oral 480 ml 480 ml IV Total 444 ml Other 1000 ml Output Urine Total 850 ml Estimated Blood Loss 100 ml # Voids 3 1 2 # Bowel Movements 0 0 Result Diagram: 10/07/16 1205 10/07/16 1205 Imaging Last 72 hours Impressions Knee X-Ray 10/07/16 0000 Signed Impressions: Service Date/Time: September 12:38 - CONCLUSION: 1. Orthopedic hardware is intact. There is a large soft tissue defect overlying the knee. Heber Bobo MD Objective Remarks She is resting comfortably, supine in bed. The dressing is dry and intact. The neurovascular status is intact. Assessment & Plan Ortho Post Op Day #: 1 Problem List: (1) Status post total right knee replacement Plan: Resume PT. (2) Wound dehiscence, traumatic injury repair Plan: Continue postop care and antibiotics. Assessment and Plan Condition: Good. Orthopaedically stable. She will be hospitalized on antibiotics for at least a few days. DVT prophylaxis:ASA,TEDs, sequentials. Discharge plans: Home with [facility]. Has appointment. Cris Nelson MD (Charles) Oct 08, 2016 07:13
[2016-10-08 07:35] LABS: BICARBONATE 25.7 MEQ/L (21.0-32.0); POTASSIUM 4.1 MEQ/L (3.5-5.1)
[2016-10-08] MEDS: MORPHINE SULFATE 4 MG/ML INJ IV PUSH PRN ×3 (08:14→16:45)
[2016-10-08] MEDS: CELECOXIB 200 MG CAP PO SCH ×2 (08:14→21:40)
[2016-10-08] MEDS: MAGNESIUM OXIDE 400 MG TAB PO SCH (08:15)
[2016-10-08] MEDS: ALLOPURINOL 100 MG TAB PO SCH (08:15)
[2016-10-08] MEDS: ASPIRIN EC 81 MG TABEC PO SCH ×2 (08:16→21:40)
[2016-10-08] MEDS: CETIRIZINE HCL 10 MG TAB PO SCH (08:16)
[2016-10-08] MEDS: MAGNESIUM HYDROXIDE SUSP 30 ML CUP PO PRN (08:16)
[2016-10-08] MEDS: FLUoxetine HCL 20 MG CAP PO SCH (08:16)
[2016-10-08] MEDS: SODIUM CHLORIDE 0.9% FLUSH 5 ML FLUSH IVF SCH ×2 (08:18→21:00)
[2016-10-08] MEDS ORDERED: NON-FORMULARY DRUG (Potassium 99 MG) PO SCH (09:00)
[2016-10-08] MEDS: ceFAZolin 2 GM PREMIX 50 ML IV SCH ×3 (09:58→21:40)
--- NOTE | 2016-10-08 15:20 | HHI.PR ---
Subjective Remarks Postop. Recovering well. Plan for hospital stay with several days of antibiotics per orthopedic. Physical therapy to begin today. Objective Vital Signs Date Time Temp Pulse Resp B/P Pulse Ox O2 Delivery O2 Flow Rate FiO2 10/08/16 12:00 98.1 79 18 111/61 100 10/08/16 08:21 16 10/08/16 08:00 98.1 83 18 139/69 99 10/08/16 07:54 97 21 10/08/16 04:00 96.9 93 17 132/76 99 10/08/16 04:00 96.9 93 16 132/69 99 10/08/16 00:00 97.9 87 17 144/64 98 10/07/16 19:00 96.7 81 16 150/81 98 10/07/16 19:00 97.9 81 14 158/73 96 Nasal Cannula 2 10/07/16 18:45 81 14 154/72 96 Nasal Cannula 2 10/07/16 18:30 79 14 158/74 99 Nasal Cannula 2 10/07/16 18:15 79 14 159/75 99 Nasal Cannula 2 10/07/16 18:00 79 14 166/76 99 Nasal Cannula 3 10/07/16 17:45 97.9 85 14 189/81 100 Nasal Cannula 4 I/O 10/07/16 10/07/16 10/07/16 10/08/16 10/08/16 10/08/16 07:00 15:00 23:00 07:00 15:00 23:00 Intake Total 1480 ml 924 ml Output Total 850 ml 100 ml Balance -850 ml 1380 ml 924 ml Intake Oral 480 ml 480 ml IV Total 444 ml Other 1000 ml Output Urine Total 850 ml Estimated Blood Loss 100 ml # Voids 3 1 2 # Bowel Movements 0 0 Result Diagram: 10/08/16 0640 10/08/16 0640 Imaging Last Impressions Knee X-Ray 10/07/16 0000 Signed Impressions: Service Date/Time: September 12:38 - CONCLUSION: 1. Orthopedic hardware is intact. There is a large soft tissue defect overlying the knee. Heber Bobo MD Objective Remarks GENERAL: NAD, A&Ox3 HEAD: Normocephalic. NECK: Supple, trachea midline. No lymphadenopathy. EYES: No scleral icterus. No injection or drainage. CARDIOVASCULAR: Regular rate and rhythm without murmurs, gallops, or rubs. RESPIRATORY: Breath sounds equal bilaterally. No accessory muscle use. GASTROINTESTINAL: Abdomen soft, non-tender, nondistended. MUSCULOSKELETAL: No cyanosis, or edema. Right knee bandage. SKIN: Warm and dry. NEURO: No focal neurological deficitis. Medications and IVs Administered Medications Medications (Trade) Dose Ordered Sig/Estefany Route PRN Reason Start Time Stop Time Status Last Admin Dose Admin Tranexamic Acid/ Sodium Chloride (Cyklokapron Inj/ NS Inj) 110 ml @ 200 mls/hr ONCE IV 10/07/16 17:00 10/08/16 16:59 10/07/16 18:36 Allopurinol (Zyloprim) 100 mg DAILY PO 10/08/16 09:00 10/08/16 08:15 Celecoxib (CeleBREX) 200 mg BID PO 10/07/16 21:00 10/08/16 08:14 Fluoxetine HCl (PROzac) 20 mg DAILY PO 10/08/16 09:00 10/08/16 08:16 Magnesium Oxide (Mag-Ox) 400 mg DAILY PO 10/08/16 09:00 10/08/16 08:15 Cetirizine HCl (ZyrTEC) 10 mg DAILY PO 10/08/16 09:00 10/08/16 08:16 Pantoprazole Sodium 40 mg 40 mg BIDAC PO 10/08/16 07:00 10/08/16 06:11 Lactated Ringer's (Lr 1000 ml Inj) 1,000 ml @ 80 mls/hr [id number] IV 10/07/16 18:30 10/07/16 18:30 IV Flush (NS Flush) 2 ml BID IVF 10/07/16 21:00 10/08/16 08:18 Morphine Sulfate (Morphine Inj) 4 mg Q3H PRN IV PUSH BREAKTHROUGH PAIN 10/07/16 17:45 10/08/16 11:43 Acetaminophen/ Hydrocodone Bitart ([place] 7.5-325 Mg) 2 tab Q4H PRN PO PAIN SCALE 5 TO 10 10/07/16 17:45 10/08/16 13:59 Zolpidem Tartrate (Ambien) 5 mg HS PRN PO SLEEP 10/07/16 17:45 10/08/16 00:43 Magnesium Hydroxide (Milk Of Magnesia Liq) 30 ml DAILY PRN PO CONSTIPATION 10/07/16 17:45 10/08/16 08:16 Aspirin (Ecotrin Ec) 81 mg BID PO 10/07/16 21:00 10/08/16 08:16 Ketorolac Tromethamine 15 mg 15 mg Q6H IVP 10/07/16 18:00 10/09/16 12:01 10/08/16 11:45 Cefazolin Sodium/ Dextrose (Ancef 2 Gm Premix) 50 ml @ 100 mls/hr Q6H IV 10/08/16 10:00 10/10/16 09:59 10/08/16 09:58 A/P Problem List: (1) Primary osteoarthritis of right knee ICD Code: M17.11 (2) Fall ICD Code: W19.XXXA (3) DM2 (diabetes mellitus, type 2) ICD Code: E11.9 (4) Wound dehiscence, traumatic injury repair ICD Code: T81.33XA (5) Gastroparesis ICD Code: K31.84 (6) HTN (hypertension) ICD Code: I10 (7) Status post total right knee replacement ICD Code: Z96.651 Assessment and Plan Assessment and Plan 55 year old female status post surgical wound dehiscence at right knee. Recovering well. Continue antibiotics for several days and to orthopedic clears patient for discharge. Continue physical therapy and patient for now. Surgical wound dehiscence Related to fall OR repair in process PRN pain treatments PT after repair Diabetes Insulin Sliding Scale Diabetic Diet Follow blood sugars HTN Follow BP No change to baseline treatment GIST tumor hx gastroparesis Follow for symptoms No change to baseline managements Seasonal allergies GERD Follow clinically DVT Prophylaxis Lovenox will be considered post op Heber Hunt MD Oct 08, 2016 15:20
[2016-10-08] MEDS: DOCUSATE SODIUM 100 MG CAP PO SCH (21:40)
[2016-10-09] VITALS (7 sets, daily range): BP systolic 127–158; BP diastolic 63–78; PULSE 75–83; RESP 16–18; TEMP 97.2–98.1; O2SAT 93–99
[2016-10-09] MEDS: KETOROLAC TROMETHAMINE 30 MG/ML (IVP) VIAL IVP SCH ×3 (00:14→11:55)
[2016-10-09] MEDS: ACETAMINOPHEN/HYDROcodone 325 MG/7.5 MG TAB PO PRN ×5 (04:36→22:08)
[2016-10-09] MEDS: ceFAZolin 2 GM PREMIX 50 ML IV SCH ×4 (04:37→21:22)
[2016-10-09] MEDS: INSULIN ASPART SUPPLEMENTAL SCALE SQ SCH ×4 (05:49→21:23)
[2016-10-09] MEDS: LACTATED RINGER'S 1000 ML INJ 1,000 ML IV SCH ×2 (05:52→21:23)
[2016-10-09] MEDS: PANTOPRAZOLE SOD 40 MG DELAYED RELEASE TAB PO SCH ×2 (05:53→16:03)
[2016-10-09 06:19] LABS: HEMATOCRIT 26.3 % (35.0-46.0); REVIEW FLAG FINAL
[2016-10-09] MEDS: ALLOPURINOL 100 MG TAB PO SCH (07:47)
[2016-10-09] MEDS: MORPHINE SULFATE 4 MG/ML INJ IV PUSH PRN ×2 (07:47→16:09)
[2016-10-09] MEDS: DOCUSATE SODIUM 100 MG CAP PO SCH ×2 (07:47→21:21)
[2016-10-09] MEDS: CETIRIZINE HCL 10 MG TAB PO SCH (07:47)
[2016-10-09] MEDS: ASPIRIN EC 81 MG TABEC PO SCH ×2 (07:47→21:19)
[2016-10-09] MEDS: CELECOXIB 200 MG CAP PO SCH ×2 (07:47→21:21)
[2016-10-09] MEDS: MAGNESIUM OXIDE 400 MG TAB PO SCH (07:47)
[2016-10-09] MEDS: FLUoxetine HCL 20 MG CAP PO SCH (07:47)
[2016-10-09] MEDS: SODIUM CHLORIDE 0.9% FLUSH 5 ML FLUSH IVF SCH ×2 (07:53→21:22)
--- NOTE | 2016-10-09 07:54 | PD.ORT.PN ---
Subjective Post Op Day #: 2 Subjective Remarks There is some pain primarily related to spasm. It is well controlled. She has done well with PT. Range of Motion 0 to 80 degrees. Distance Walked 25 feet in AM; 20 feet, then 50 feet in PM. Objective Vitals Vital Signs Date Time Temp Pulse Resp B/P Pulse Ox O2 Delivery O2 Flow Rate FiO2 10/09/16 06:26 18 10/09/16 05:29 18 10/09/16 04:00 97.6 80 16 158/71 93 10/09/16 00:00 97.6 80 16 158/71 93 10/08/16 19:00 97.8 93 17 165/88 97 10/08/16 17:03 16 10/08/16 16:00 98.7 87 18 127/66 97 10/08/16 12:00 98.1 79 18 111/61 100 10/08/16 08:00 98.1 83 18 139/69 99 10/08/16 07:54 97 21 I/O 10/08/16 10/08/16 10/08/16 10/09/16 10/09/16 10/09/16 07:00 15:00 23:00 07:00 15:00 23:00 Intake Total 924 ml 720 ml 480 ml 480 ml Balance 924 ml 720 ml 480 ml 480 ml Intake Oral 480 ml 720 ml 480 ml 480 ml IV Total 444 ml # Voids 2 2 3 3 # Bowel Movements 0 0 0 0 Result Diagram: 10/09/16 0547 10/08/16 0640 Imaging Last 72 hours Impressions Knee X-Ray 10/07/16 0000 Signed Impressions: Service Date/Time: September 12:38 - CONCLUSION: 1. Orthopedic hardware is intact. There is a large soft tissue defect overlying the knee. Heber Bobo MD Objective Remarks She is resting comfortably, supine in bed. The dressing is dry and intact. The neurovascular status is intact. Assessment & Plan Ortho Post Op Day #: 2 Problem List: (1) Status post total right knee replacement Plan: Resume PT. (2) Wound dehiscence, traumatic injury repair Plan: Continue postop care and antibiotics. Considering the mechaism of injury, location of the injury and findings at the time of surgery, there is a fair chance that she will require a repeat debridement. Assessment and Plan Condition: Good. Orthopaedically stable. She will be hospitalized on antibiotics for at least a few days. DVT prophylaxis:ASA,TEDs, sequentials. Discharge plans: Home with [facility]. Has appointment. Cris Nelson MD (Charles) Oct 09, 2016 07:54
--- NOTE | 2016-10-09 09:36 | HHI.PR ---
Subjective Remarks Doing well. Antibiotics being continued for 2-3 more days. Patient has no new complaints. She is starting to ambulate with PT. Blood sugars have been stable and she has changed back to her home dosing of metformin. Objective Vital Signs Date Time Temp Pulse Resp B/P Pulse Ox O2 Delivery O2 Flow Rate FiO2 10/09/16 07:52 18 10/09/16 06:26 18 10/09/16 05:29 18 10/09/16 04:00 97.6 80 16 158/71 93 10/09/16 00:00 97.6 80 16 158/71 93 10/08/16 19:00 97.8 93 17 165/88 97 10/08/16 16:00 98.7 87 18 127/66 97 10/08/16 12:00 98.1 79 18 111/61 100 I/O 10/08/16 10/08/16 10/08/16 10/09/16 10/09/16 10/09/16 06:59 14:59 22:59 06:59 14:59 22:59 Intake Total 924 ml 720 ml 480 ml 480 ml Balance 924 ml 720 ml 480 ml 480 ml Intake Oral 480 ml 720 ml 480 ml 480 ml IV Total 444 ml # Voids 2 2 3 3 # Bowel Movements 0 0 0 0 Result Diagram: 10/09/16 0547 10/08/16 0640 Objective Remarks GENERAL: NAD, A&Ox3 HEAD: Normocephalic. NECK: Supple, trachea midline. No lymphadenopathy. EYES: No scleral icterus. No injection or drainage. CARDIOVASCULAR: Regular rate and rhythm without murmurs, gallops, or rubs. RESPIRATORY: Breath sounds equal bilaterally. No accessory muscle use. GASTROINTESTINAL: Abdomen soft, non-tender, nondistended. MUSCULOSKELETAL: No cyanosis, or edema. Right knee bandage. SKIN: Warm and dry. NEURO: No focal neurological deficitis. A/P Problem List: (1) Primary osteoarthritis of right knee ICD Code: M17.11 (2) Fall ICD Code: W19.XXXA (3) DM2 (diabetes mellitus, type 2) ICD Code: E11.9 (4) Wound dehiscence, traumatic injury repair ICD Code: T81.33XA (5) Gastroparesis ICD Code: K31.84 (6) HTN (hypertension) ICD Code: I10 (7) Status post total right knee replacement ICD Code: Z96.651 Assessment and Plan Assessment and Plan 55 year old female status post surgical wound dehiscence at right knee. Recovering well. Antibiotics to continue for 2-3 more days prior to discharge. Continue physical therapy. Blood sugars under good control. Metformin added back in insulin stopped. Surgical wound dehiscence Related to fall OR repair in process PRN pain treatments PT after repair Diabetes Insulin Sliding Scale Diabetic Diet Follow blood sugars HTN Follow BP No change to baseline treatment GIST tumor hx gastroparesis Follow for symptoms No change to baseline managements Seasonal allergies GERD Follow clinically DVT Prophylaxis Lovenox will be considered post op Heber Hunt MD Oct 09, 2016 09:36
[2016-10-09] MEDS: MAGNESIUM HYDROXIDE SUSP 30 ML CUP PO PRN (11:54)
[2016-10-09] MEDS: metFORMIN HCL 500 MG TAB PO SCH (16:03)
[2016-10-09] MEDS: ZOLPIDEM TARTRATE 5 MG TAB PO PRN (21:21)
--- NOTE | 2016-10-09 23:07 | MP ---
cc: Aba DENNY. DATE OF SURGERY 10/07/16 PREOPERATIVE DIAGNOSIS 1. Prior right total knee arthroplasty. Accidental fall on the same surface. 2. Contusion right knee with accidental dehiscence anterior right knee wound. POSTOPERATIVE DIAGNOSIS 1. Prior right total knee arthroplasty. Accidental fall on the same surface. 2. Contusion right knee with accidental dehiscence anterior right knee wound. OPERATION PERFORMED Irrigation debridement and repair of right total knee wound. SURGEON Pascale Denny MD REGISTERED MEDICAL TRANSCRIPTIONIST [facility]EL[facility] ANESTHESIA General endotracheal with supplemental local. INDICATIONS AND FINDINGS This a 55-year-old woman who had a total knee arthroplasty carried out on 09/28/2016. She was doing well at home when she stepped out of her shower onto a wet floor and slipped, falling and hitting her knee. She was brought to [facility] emergency department where she was found to have a dehiscence of her wound. She was given antibiotic by the physician in the emergency department. She was admitted, seen by the undersigned and admitted by the undersigned soon thereafter. Physical findings showed significant gap in the wound with a dressing still intact and in place. There was bleeding from this. Operative findings showed a dehiscence of the wound down to the level of the prosthesis. The tissues themselves appeared to be relatively stable, although there were some obvious small tears in the capsule. The tissues were consistent with what would be expected at this stage of healing. PROCEDURE IN DETAIL The patient was brought to the operating room from the emergency department. She had received antibiotics in the emergency department IN the form of vancomycin. Ancef was given in the operating room prior to incision and also an update on the vancomycin. She was also reported to have had tranexamic acid. The general endotracheal anesthetic was administered. She was placed into a supine position with a small bolster under the right hip. Pneumatic tourniquet was applied to the thigh but was not inflated. The knee was then prepped with alcohol, Hibiclens and Chloraprep on the skin and Betadine in the knee. The appropriate time-out procedure was carried out. The knee was then irrigated with copious amounts of antibiotic solution. There was no significant debris. All the suture material was removed and clot was removed from the knee. The knee was then irrigated well with total of 6 liters of antibiotic solution. This appeared to be clean. Some of the drape was covered with new drape and new gloves were applied. The wound was then closed in layers using #1 Vicryl interrupted [id number] sutures and some Candido Tao sutures for reapproximation of the medial retinaculum capsule quadriceps. After the fascial repair had been completed, the subcutaneous tissues were closed with 2-0 Vicryl interrupted simple sutures with buried knots. The Vicryl was antibiotic impregnated. The skin was closed with a continuous subcuticular closure of 4-0 Monocryl. The wound was dressed with Steri-Strips followed by dry dressing, sterile Sof-Rol, cooling pad, further sterile Sof-Rol and Geoffrey bandage from the base of the toe to mid thigh. The knee was taken through a range of motion after capsular closure and was easily 0 degrees extension to 120 degrees of flexion or more. The stability was excellent. Patella tracking appeared to be appropriate. The patient was then transferred to the recovery room in satisfactory condition having tolerated the procedure well. Counts were correct. SPECIMEN Culture from the wound. MD ARTI Llamas/ /6:06 PM /10:56 PM
[2016-10-10] MEDS: ACETAMINOPHEN/HYDROcodone 325 MG/7.5 MG TAB PO PRN ×5 (02:28→19:45)
[2016-10-10] MEDS: ceFAZolin 2 GM PREMIX 50 ML IV SCH ×4 (04:34→21:28)
[2016-10-10 04:55] VITALS: BP 137/70; PULSE 77; RESP 17; TEMP 97.1; O2SAT 98
[2016-10-10] MEDS: PANTOPRAZOLE SOD 40 MG DELAYED RELEASE TAB PO SCH ×2 (06:30→15:12)
[2016-10-10] MEDS: INSULIN ASPART SUPPLEMENTAL SCALE SQ SCH ×4 (06:34→19:48)
[2016-10-10 07:05] LABS: HEMATOCRIT 28.2 % (35.0-46.0); MEAN CELL VOLUME 85.4 FL (80.0-100.0); MEAN CORPUSCULAR HEMOGLOBIN 27.8 PG (27.0-34.0); MEAN CORPUSCULAR HGB CONC 32.5 % (32.0-36.0); PLATELET COUNT 298 TH/MM3 (150-450); RED BLOOD COUNT 3.31 MIL/MM3 (4.00-5.30); RED CELL DISTRIBUTION WIDTH 14.1 % (11.6-17.2); REVIEW FLAG FINAL; WHITE BLOOD COUNT 9.1 TH/MM3 (4.0-11.0)
[2016-10-10 08:00] VITALS: BP 129/64; PULSE 83; RESP 18; TEMP 97.8; O2SAT 97
--- NOTE | 2016-10-10 08:57 | PD.ORT.PN ---
Subjective Post Op Day #: 3 Subjective Remarks There is little pain primarily. It is well controlled. She has continued to do well with PT. Range of Motion 0 to 92 degrees. Distance Walked 100 feet with PT. Objective Vitals Vital Signs Date Time Temp Pulse Resp B/P Pulse Ox O2 Delivery O2 Flow Rate FiO2 10/10/16 08:00 97.8 83 18 129/64 97 10/10/16 04:55 97.1 77 17 137/70 98 10/09/16 23:55 97.3 81 17 138/63 96 10/09/16 19:40 97.2 83 18 130/69 96 10/09/16 19:08 Room Air 10/09/16 16:14 18 10/09/16 16:00 97.7 82 18 127/68 98 10/09/16 14:25 18 10/09/16 12:55 18 10/09/16 12:00 97.6 75 18 134/73 99 I/O 10/09/16 10/09/16 10/09/16 10/10/16 10/10/16 10/10/16 07:00 15:00 23:00 07:00 15:00 23:00 Intake Total 480 ml 1320 ml 480 ml Balance 480 ml 1320 ml 480 ml Intake Oral 480 ml 1320 ml 480 ml # Voids 3 5 2 # Bowel Movements 0 1 0 Result Diagram: 10/10/16 0651 10/08/16 0640 Other Results Laboratory Tests Test 10/10/16 06:51 White Blood Count 9.1 Red Blood Count 3.31 Hemoglobin 9.2 Hematocrit 28.2 Mean Corpuscular Volume 85.4 Mean Corpuscular Hemoglobin 27.8 Mean Corpuscular Hemoglobin 32.5 Concent Red Cell Distribution Width 14.1 Platelet Count 298 Mean Platelet Volume 8.3 Date/Time Procedure Status Source Growth 10/07/16 16:15 Gram Stain - Final Resulted Wound Knee 10/07/16 16:15 Wound Culture - Preliminary Resulted Wound Knee NO GROWTH IN 48 HOURS. 10/07/16 16:15 Fungal Smear - Final Resulted Wound Knee NO FUNGAL ELEMENTS SEEN. 10/07/16 16:15 Fungal Culture Resulted Wound Knee Pending 10/07/16 16:15 Acid Fast Stain - Final Resulted Wound Knee NO ACID FAST BACILLI SEEN 10/07/16 16:15 Mycobacterial Culture Resulted Wound Knee Pending Imaging Last 72 hours Impressions Knee X-Ray 10/07/16 0000 Signed Impressions: Service Date/Time: September 12:38 - CONCLUSION: 1. Orthopedic hardware is intact. There is a large soft tissue defect overlying the knee. Heber Bobo MD Objective Remarks She is resting comfortably, supine in bed. The dressing is dry and intact. The wound is clean and dry, without erythem or induration. The neurovascular status is intact. Assessment & Plan Ortho Post Op Day #: 3 Problem List: (1) Status post total right knee replacement Plan: Resume PT. (2) Wound dehiscence, traumatic injury repair Plan: Continue postop care and antibiotics. Considering the mechaism of injury, location of the injury and findings at the time of surgery, there is a fair chance that she will require a repeat debridement. Assessment and Plan Condition: Good. Orthopaedically stable. She will be hospitalized on antibiotics for at least a few days. DVT prophylaxis:ASA,TEDs, sequentials. Discharge plans: Home with [facility]. Has appointment. Rx: Norco7.5/325, Keflex 500mg. Cris Nelson MD (Charles) Oct 10, 2016 08:57
[2016-10-10] MEDS: SODIUM CHLORIDE 0.9% FLUSH 5 ML FLUSH IVF SCH ×2 (09:00→21:00)
[2016-10-10] MEDS: LACTATED RINGER'S 1000 ML INJ 1,000 ML IV SCH ×2 (09:00→19:48)
[2016-10-10] MEDS ORDERED: HYDR-3580 PO (09:10)
--- NOTE | 2016-10-10 09:12 | HHI.FF ---
Face to Face Verification Diagnosis: (1) Wound dehiscence, traumatic injury repair (2) Fall (3) Status post total right knee replacement Physical Therapy Gait training, Safety evaluation Knee: Total knee, Protocol: Right, Gait training, Full weight bearing Right LE Weight Bearing: WB as tolerated Right LE Range of Motion: Active ROM Nursing Nursing: Dressing changes Dressing Changes: Daily dressing change, Coverderm/Primapore Additional Instructions Remove steristrips on postop day 21. I have seen patient Nancy Calvert on 10/10/16. My clinical findings support the need for the requested home health care services because: Ltd mobility - disease progression Deconditioned w/ increased weakness Limited ability to care for self High risk of falls I certify that my clinical findings support that this patient is homebound because: Post-op weakness Unsteady gait/balance Unsafe to leave home unassisted Cris Nelson MD (Charles) Oct 10, 2016 09:12
[2016-10-10] MEDS: CELECOXIB 200 MG CAP PO SCH ×2 (09:59→21:26)
[2016-10-10] MEDS: ASPIRIN EC 81 MG TABEC PO SCH ×2 (09:59→21:26)
[2016-10-10] MEDS: ALLOPURINOL 100 MG TAB PO SCH (09:59)
[2016-10-10] MEDS: CETIRIZINE HCL 10 MG TAB PO SCH (09:59)
[2016-10-10] MEDS: FLUoxetine HCL 20 MG CAP PO SCH (10:00)
[2016-10-10] MEDS: MAGNESIUM OXIDE 400 MG TAB PO SCH (10:00)
[2016-10-10] MEDS: DOCUSATE SODIUM 100 MG CAP PO SCH ×2 (10:00→21:26)
--- NOTE | 2016-10-10 10:05 | HHI.PR ---
Subjective Remarks Ambulation improving. Plan for discharge tentatively on 10/11/16. Patient has no complaints. She does request Ambien that she might be able to use at home because she is a side sleeper and having problems sleeping on her back. Objective Vital Signs Date Time Temp Pulse Resp B/P Pulse Ox O2 Delivery O2 Flow Rate FiO2 10/10/16 08:00 97.8 83 18 129/64 97 10/10/16 04:55 97.1 77 17 137/70 98 10/09/16 23:55 97.3 81 17 138/63 96 10/09/16 19:40 97.2 83 18 130/69 96 10/09/16 19:08 Room Air 10/09/16 16:14 18 10/09/16 16:00 97.7 82 18 127/68 98 10/09/16 14:25 18 10/09/16 12:55 18 10/09/16 12:00 97.6 75 18 134/73 99 I/O 10/09/16 10/09/16 10/09/16 10/10/16 10/10/16 10/10/16 07:00 15:00 23:00 07:00 15:00 23:00 Intake Total 480 ml 1320 ml 480 ml Balance 480 ml 1320 ml 480 ml Intake Oral 480 ml 1320 ml 480 ml # Voids 3 5 2 # Bowel Movements 0 1 0 Result Diagram: 10/10/16 0651 10/08/16 0640 Objective Remarks GENERAL: NAD, A&Ox3 HEAD: Normocephalic. NECK: Supple, trachea midline. No lymphadenopathy. EYES: No scleral icterus. No injection or drainage. CARDIOVASCULAR: Regular rate and rhythm without murmurs, gallops, or rubs. RESPIRATORY: Breath sounds equal bilaterally. No accessory muscle use. GASTROINTESTINAL: Abdomen soft, non-tender, nondistended. MUSCULOSKELETAL: No cyanosis, or edema. Right knee bandage. SKIN: Warm and dry. NEURO: No focal neurological deficitis. A/P Problem List: (1) Primary osteoarthritis of right knee ICD Code: M17.11 (2) Fall ICD Code: W19.XXXA (3) DM2 (diabetes mellitus, type 2) ICD Code: E11.9 (4) Wound dehiscence, traumatic injury repair ICD Code: T81.33XA (5) Gastroparesis ICD Code: K31.84 (6) HTN (hypertension) ICD Code: I10 (7) Status post total right knee replacement ICD Code: Z96.651 Assessment and Plan Assessment and Plan 55 year old female status post surgical wound dehiscence at right knee. Recovering well. IV Antibiotics to continue for 1 more day. Possible discharge 10/11/16. Ambien prescription provided for patient to use at time of discharge. Surgical wound dehiscence Related to fall OR repair in process PRN pain treatments PT after repair Diabetes Insulin Sliding Scale Diabetic Diet Follow blood sugars HTN Follow BP No change to baseline treatment GIST tumor hx gastroparesis Follow for symptoms No change to baseline managements Seasonal allergies GERD Follow clinically DVT Prophylaxis Lovenox will be considered post op Heber Hunt MD Oct 10, 2016 10:05
[2016-10-10] MEDS ORDERED: AMBI5TAB PO (10:06)
[2016-10-10 12:00] VITALS: BP 151/69; PULSE 73; RESP 18; TEMP 97.1; O2SAT 94
[2016-10-10] MEDS: metFORMIN HCL 500 MG TAB PO SCH (15:12)
[2016-10-10 16:00] VITALS: BP 150/76; PULSE 89; RESP 18; TEMP 98; O2SAT 94
[2016-10-10 20:20] VITALS: BP 140/62; PULSE 89; RESP 18; TEMP 98.4; O2SAT 96
[2016-10-10] MEDS: ZOLPIDEM TARTRATE 5 MG TAB PO PRN (21:26)
[2016-10-10] MEDS ORDERED: ceFAZolin 2 GM PREMIX 50 ML IV SCH (22:00)
[2016-10-11] MEDS: ACETAMINOPHEN/HYDROcodone 325 MG/7.5 MG TAB PO PRN ×3 (00:17→09:44)
[2016-10-11 00:20] VITALS: BP 131/74; PULSE 89; RESP 18; TEMP 98; O2SAT 96
[2016-10-11 04:08] VITALS: BP 129/68; PULSE 92; RESP 18; TEMP 97; O2SAT 96
[2016-10-11] MEDS: ceFAZolin 2 GM PREMIX 50 ML IV SCH (04:36)
[2016-10-11] MEDS: PANTOPRAZOLE SOD 40 MG DELAYED RELEASE TAB PO SCH (06:12)
[2016-10-11] MEDS: INSULIN ASPART SUPPLEMENTAL SCALE SQ SCH (06:13)
[2016-10-11 08:00] VITALS: BP 137/68; PULSE 82; RESP 16; TEMP 97.8; O2SAT 98
[2016-10-11] MEDS: SODIUM CHLORIDE 0.9% FLUSH 5 ML FLUSH IVF SCH (09:43)
[2016-10-11] MEDS: DOCUSATE SODIUM 100 MG CAP PO SCH (09:44)
[2016-10-11] MEDS: ALLOPURINOL 100 MG TAB PO SCH (09:44)
[2016-10-11] MEDS: ASPIRIN EC 81 MG TABEC PO SCH (09:44)
[2016-10-11] MEDS: CELECOXIB 200 MG CAP PO SCH (09:44)
[2016-10-11] MEDS: MAGNESIUM OXIDE 400 MG TAB PO SCH (09:44)
[2016-10-11] MEDS: FLUoxetine HCL 20 MG CAP PO SCH (09:44)
[2016-10-11] MEDS: CETIRIZINE HCL 10 MG TAB PO SCH (09:45)
[2016-10-11] MEDS: LACTATED RINGER'S 1000 ML INJ 1,000 ML IV SCH (09:45)
--- NOTE | 2016-10-11 10:12 | HHI.PR ---
Objective Vitals Vital Signs Date Time Temp Pulse Resp B/P Pulse Ox O2 Delivery O2 Flow Rate FiO2 10/11/16 08:00 97.8 82 16 137/68 98 10/11/16 04:08 97.0 92 18 129/68 96 10/11/16 00:20 98.0 89 18 131/74 96 10/10/16 20:45 18 10/10/16 20:20 98.4 89 18 140/62 96 10/10/16 16:00 98.0 89 18 150/76 94 10/10/16 12:00 97.1 73 18 151/69 94 I/O 10/10/16 10/10/16 10/10/16 10/11/16 10/11/16 10/11/16 07:00 15:00 23:00 07:00 15:00 23:00 Intake Total 480 ml 960 ml 120 ml Balance 480 ml 960 ml 120 ml Intake Oral 480 ml 960 ml 120 ml # Voids 2 6 2 # Bowel Movements 0 1 0 Result Diagram: 10/10/16 0651 10/08/16 0640 A/P Problem List: (1) Status post total right knee replacement ICD Code: Z96.651 Status: Acute (2) Primary osteoarthritis of right knee ICD Code: M17.11 Status: Acute (3) HTN (hypertension) ICD Code: I10 Status: Acute (4) Gastroparesis ICD Code: K31.84 Status: Acute (5) Wound dehiscence, traumatic injury repair ICD Code: T81.33XA Status: Acute (6) DM2 (diabetes mellitus, type 2) ICD Code: E11.9 Status: Acute Heaven Johnson DO Oct 11, 2016 10:12
--- NOTE | 2016-10-11 10:15 | PD.ORT.PN ---
Subjective Post Op Day #: 4 Subjective Remarks There is very little pain. It is well controlled. She has continued to do well with PT. Range of Motion 0 to 98 degrees yesterday, 0 to 100 degrees today. Distance Walked 140 feet in AM, 170 feet in PM. Objective Vitals Vital Signs Date Time Temp Pulse Resp B/P Pulse Ox O2 Delivery O2 Flow Rate FiO2 10/11/16 08:00 97.8 82 16 137/68 98 10/11/16 04:08 97.0 92 18 129/68 96 10/11/16 00:20 98.0 89 18 131/74 96 10/10/16 20:45 18 10/10/16 20:20 98.4 89 18 140/62 96 10/10/16 16:00 98.0 89 18 150/76 94 10/10/16 12:00 97.1 73 18 151/69 94 I/O 10/10/16 10/10/16 10/10/16 10/11/16 10/11/16 10/11/16 07:00 15:00 23:00 07:00 15:00 23:00 Intake Total 480 ml 960 ml 120 ml Balance 480 ml 960 ml 120 ml Intake Oral 480 ml 960 ml 120 ml # Voids 2 6 2 # Bowel Movements 0 1 0 Result Diagram: 10/10/16 0651 10/08/16 0640 Other Results Date/Time Procedure Status Source Growth 10/07/16 16:15 Gram Stain - Final Complete Wound Knee 10/07/16 16:15 Wound Culture - Final Complete Wound Knee NO GROWTH IN 72 HRS.--AEROBICALLY OR ... 10/07/16 16:15 Fungal Smear - Final Resulted Wound Knee NO FUNGAL ELEMENTS SEEN. 10/07/16 16:15 Fungal Culture Resulted Wound Knee Pending 10/07/16 16:15 Acid Fast Stain - Final Resulted Wound Knee NO ACID FAST BACILLI SEEN 10/07/16 16:15 Mycobacterial Culture Resulted Wound Knee Pending Imaging Last 72 hours Impressions Knee X-Ray 10/07/16 0000 Signed Impressions: Service Date/Time: September 12:38 - CONCLUSION: 1. Orthopedic hardware is intact. There is a large soft tissue defect overlying the knee. Heber Bobo MD Objective Remarks She is resting comfortably, supine in bed. The dressing is dry and intact. The wound is clean and dry, without erythem or induration. The neurovascular status is intact. Assessment & Plan Ortho Post Op Day #: 4 Problem List: (1) Status post total right knee replacement Plan: Resume PT. (2) Wound dehiscence, traumatic injury repair Plan: Continue postop care and antibiotics. Considering the mechaism of injury, location of the injury and findings at the time of surgery, there is a fair chance that she will require a repeat debridement. Assessment and Plan Condition: Good. Orthopaedically stable. She will be hospitalized on antibiotics for at least a few days. DVT prophylaxis:ASA,TEDs, sequentials. Discharge plans: Home with [facility]. Has appointment. Rx: Norco7.5/325, Keflex 500mg. Cris Nelson MD (Charles) Oct 11, 2016 10:15
[2016-10-11] MEDS ORDERED: CEPH-460 PO (10:25)
--- NOTE | 2016-10-26 22:42 | MD ---
cc: Aba DENNY. ADMISSION DATE: 10/07/2016 DISCHARGE DATE: 10/11/2016 ADMISSION DIAGNOSIS 1. Accidental fall (single level, slipped on wet floor). 2. Contusion right knee. 3. Dehiscence wound right total knee FINAL DIAGNOSIS 1. Accidental fall (single level, slipped on wet floor). 2. Contusion right knee. 3. Dehiscence wound right total knee OPERATIONS DURING HOSPITALIZATION Irrigation and debridement and repair of right total knee wound on 10/07/2016 PRESENT ILLNESS This 55-year-old woman had right total knee arthroplasty carried out on 09/28/2016. When she was at home and doing well, she stepped out of her shower onto the wet floor and slipped, falling and hitting her right knee on 10/07/2016. She was brought to the emergency department where she was found to have and dehisced her wound. In the emergency department, she was given antibiotics and was admitted by the undersigned after being seen. Her physical findings showed a dehiscence of the wound. This went down to the joint. X-rays showed good position and alignment of the implants. She was taken directly to the operating room where the above-noted debridement of the wound was carried out. She was irrigated well and had the incision repaired. She tolerated this procedure well. She was kept on parenteral antibiotics during the hospitalization. She was also started on physical therapy during the hospitalization. She continued to improve during the hospitalization. She was able to walk without difficulty. She progressively improved in her ambulation tolerance. Her culture and sensitivity reports showed no evidence of infection at the end of 72 hours. This included multiple cultures. She was then discharged home with home health care. She has a follow-up appointment to see the undersigned. She was given oral antibiotics in the form of Keflex. She was also given analgesics. MD ARTI Llamas/ /5:50 PM /10:35 PM
== END 2016-10-11 10:45 | disposition home health service (06) | DRG 909 ==
LOC: NEPE 11:17 → NEDA 14:32 → N06B 19:24
PROVIDERS: ADMIT Orthopaedic Surgery; ATTEND Orthopaedic Surgery
PROC: 0JQN0ZZ Repair Right Lower Leg Subcutaneous Tissue and Fascia, Open Approach (ICD-10-PCS; principal; 2016-10-07 14:48)
DX: T81.32XA Disruption of internal operation (surgical) wound, not elsewhere classified, initial encounter (principal); K31.84 Gastroparesis; I10 Essential (primary) hypertension; S80.01XA Contusion of right knee, initial encounter; E11.9 Type 2 diabetes mellitus without complications; J30.2 Other seasonal allergic rhinitis; K21.9 Gastro-esophageal reflux disease without esophagitis; M17.11 Unilateral primary osteoarthritis, right knee; F32.9 Major depressive disorder, single episode, unspecified; W18.2XXA Fall in (into) shower or empty bathtub, initial encounter; Y92.002 Bathroom of unspecified non-institutional (private) residence as the place of occurrence of the external cause; Z85.00 Personal history of malignant neoplasm of unspecified digestive organ; Z96.651 Presence of right artificial knee joint
CPT/HCPCS: 73564; 80048; 80053; 82948; 85014; 85018; 85027; 87015; 87070; 87102; 87116; 87205; 87206; 94150; 96365; 96375; J0131; J0690; J1170; J1580; J1885; J2250; J2270; J2405; J3010; J3370; J7030; J7050; J7120